=== PATIENT | female | born 1985 | race Caucasian/White ===

== ENCOUNTER → 2023-11-19 06:30 | Day surgery (SDC) | payer OTHER, SELFPAY ==
[2023-11-19 07:25] LABS: Glucose - Point of Care 115 mg/dl (70-99)
== END ==
LOC: GI 06:30
PROVIDERS: ATTENDING PHYSICIAN Internal Medicine Gastroenterology
DX: K62.5 Hemorrhage of anus and rectum (principal); R19.4 Change in bowel habit; K64.8 Other hemorrhoids; D12.4 Benign neoplasm of descending colon
CPT/HCPCS: 45380; 88305; 82962

== ENCOUNTER 2024-04-26 20:06 | Day surgery (SDC) | payer OTHER, SELFPAY ==
[2024-04-26 10:37] VITALS: BP 127/88
--- NOTE | 2024-04-26 10:44 | ED.GENMED ---
ED Provider Triage
<Jordana Reese PA-C - Last Filed: 04/26/24 10:48>
-
Patient seen by provider in Triage?: Seen in Triage
Attestation: A medical screening examination has been initiated by a qualified medical provider. Based on the assessment performed at this time, it has been determined that an emergent medical condition may exist and the patient has been informed
that further medical evaluation and possible additional diagnostic testing may be needed.
HPI: 38yoF here with chest pain. Started with nausea and subsequently had several episodes of vomiting. C/o central pain that radiates to the back. Worse with movement. Denies shortness of breath and pleuritic pain. Previously saw a registered land surveyor 6
years ago for an extra heart beat.
GENERAL: Alert , in no apparent distress
EYE: No visual abnormalities.
NECK: Trachea midline
ENT: No visible abnormalities.
LUNGS: No acute respiratory distress
NEUROLOGICAL: Alert and oriented
SKIN: Skin intact. No visible changes.
MUSCULOSKELETAL: Moving extremities normally
PSYCH: Normal and appropriate interaction.
This is a medical evaluation conducted in person to initiate diagnostic evaluation and provide initial therapeutics. Please see further documentation by the treating clinician.
Cardiac labs, EKG, and CXR ordered.
History of Present Illness
<Jordana Reese PA-C - Last Filed: 04/26/24 10:48>
General
Chief Complaint: Chest Pain
Time Seen by Provider: 04/26/24 12:15
<Ethel Keane PA-C - Last Filed: 04/26/24 20:15>
General
Source: patient
Exam Limitations: none
Nursing documentation reviewed up to this point in time: agreed with
History of Present Illness
History of Present Illness:
Patient is a 38-year-old female with history hypertension, hyperlipidemia, diabetes presenting to the emergency department for evaluation of vomiting and chest discomfort. Patient states this morning when she got to work she started to have some
nausea and vomiting. She then developed some intermittent mid chest pain. Chest pain was initially coming and going although seems to more constant at this time. She denies any clear pleuritic or exertional component to pain. She does state
chest pain is worse when she is sitting and actually better while walking around. Patient reports recurrent nausea/vomiting this morning. However�she does deny any fever, chills, abdominal pain, diarrhea/constipation, or urinary symptoms. No
associated shortness of breath, dizziness/lightheadedness, severe back pain. No radiation of chest pain to jaw or shoulder.
No known sick contacts.
Patient does have a fairly significant family history of early NH/cardiac disease in both her brother and father. Patient does not have any personal history of cardiac disease.
Patient does have a history of a gastric sleeve in 2010.
Past History
<Jordana Reese PA-C - Last Filed: 04/26/24 10:48>
Past History
ED Past Medical History: HTN, Hypercholesterolemia and IDDM
ED Past Surgical History: Other (Gastric sleeve)
Social History
Tobacco: Smoker
Alcohol: Former
Personal: Single
Living: alone
Family History
Family History: Diabetes and Other (Colon cancer, coronary artery disease)
Review of Systems
<Ethel Keane PA-C - Last Filed: 04/26/24 20:15>
Review of Systems
Allergies reviewed?: Yes
All Other Systems: ROS reviewed and negative except as documented in HPI and ROS
Phy Exam
<Ethel Keane PA-C - Last Filed: 04/26/24 20:15>
Physical Exam
Physical Exam:
Vitals: Patient's vital signs are stable. Afebrile
General: Patient is well appearing, no acute distress. Nontoxic appearing
Skin: Warm and dry, no rashes or lesions
Head: Normocephalic, atraumatic
Eyes: Sclera nonicteric. EOMs intact. No nystagmus.
Throat: Protecting airway
Neck: Normal ROM, no cervical spine tenderness, no meningismus
Cardiac: Regular rate and rhythm, no murmurs. No reproducible chest wall tenderness. No rash
Pulm: Normal respiratory effort, no wheezes, rales, rhonchi heard on exam.
Abdomen: Abdomen soft. Mild upper abdominal tenderness. No rebound tenderness or guarding. no CVA tenderness
Extremities: No evidence of cyanosis or edema. Palpable DP pulses bilaterally.
Neuro: AAOx3. Grossly intact.
Psychiatric: Normal affect.
Scores
<Ethel Keane PA-C - Last Filed: 04/26/24 20:15>
Heart Score for Chest Pain Patients
STEMI patient?: No
History: Slightly or Non-Suspicious
ECG: Normal
Age: </= 45 years
Risk Factors: >/= 3 Risk Factors or History of CAD
Troponin: </= Normal Limit
Heart Score for Chest Pain Patients: 2
Heart Score Risk: 2.5% MACE over next 6 weeks
<Moe Neely MD - Last Filed: 04/27/24 08:33>
Heart Score for Chest Pain Patients
Heart Score for Chest Pain Patients: 2
Heart Score Risk: 2.5% MACE over next 6 weeks
Course
<Jordana Reese PA-C - Last Filed: 04/26/24 10:48>
Orders/Labs/Results
Orders:
Orders
04/26/24 10:36
EKG [Electrocardiogram (*1)] Urgent
Reason for Study: Chest Pain
EKG- Treatment ONCE
04/26/24 10:40
Test Result ONCE
04/26/24 11:01
Complete Blood Count/With Diff Urgent
Comprehensive Metabolic Panel Urgent
HCG, Serum Qualitative Screen Urgent
Comment: Notify provider if positive test present
Lipase Urgent
Comment: ADD ON
Troponin I Urgent
04/26/24 11:57
CR Chest - 2 Views Urgent
Comment:
Reason For Exam: CP
04/26/24 12:31
0.9% Sodium Chloride 1000 ml [Nss] 1,000 ml IV BOLUS
Ketorolac [Toradol] 15 mg IV NOW STA
Ondansetron Injectable [Zofran] 4 mg IV NOW STA
04/26/24 12:32
Add On- LAB Urgent
Tests Added?: lipase
04/26/24 12:45
Pantoprazole [Protonix IV] 40 mg IV NOW STA
04/26/24 12:56
Troponin I Urgent
04/26/24 13:51
Ondansetron Injectable [Zofran] 4 mg IV NOW STA
04/26/24 14:05
Electrocardiogram (*1) Urgent
Reason for Study: Chest Pain
EKG- Treatment ONCE
04/26/24 14:23
Morphine Sulfate 4 mg IV NOW STA
04/26/24 14:34
US Abdomen Complete/Upper Urgent
Comment:
Reason For Exam: Upper abdominal pain, +V
04/26/24 14:35
Troponin I Urgent
04/26/24 Dinner
NPO
Allow oral meds: Yes
Allow clear liquids: Sips of Clears
04/26/24 16:15
Prochlorperazine [Compazine] 10 mg IV NOW STA
04/26/24 16:27
0.9% Sodium Chloride 1000 ml [Nss] 1,000 ml IV BOLUS
04/26/24 17:07
Morphine Sulfate 4 mg IV NOW STA
Piperacillin/Tazo 3.375 Gram [Zosyn] 3.375 gram in 50 ml IV NOW
04/26/24 17:13
Admit Patient As Directed
Co-Sign Provider:
Level of Care: Post Proc/Surg Recovery
Assign to:: Medical/Surgical
Physician / Group: Jose / GABRIEL
Diagnosis: Acute cholecystitis
Reason for Overnight Stay: Standard of Care
Code Status As Directed
Resuscitation Status: Full Code
HYDROmorphone [Dilaudid] 0.5 mg IV Q2HPRN PRN
Ondansetron Injectable [Zofran] 4 mg IV Q6HPRN PRN
Activity As Directed
Activity Level: Ambulate
Anti-embolism (HENRY) Hose As Directed
Type: Thigh high
Intake/ Output As Directed
Frequency: Per unit guidelines
Vital Signs As Directed
Frequency: Per unit guidelines
04/26/24 17:14
Pneumatic Compression Sleeves As Directed
Type: Knee high
PRN Pain Medication Management As Directed
May give lesser potent ordered pain med per pt: Yes
preference::
Protocol:: Medication orders for pain may be administered in a
manner that supports deferring to patient preference
when the pt is:
- Requesting an ordered lesser potent pain medication.
Least to most potent pain medications are defined
as: acetaminophen < NSAID < tramadol < opioids
(morphine, oxycodone, hydromorphone).
- Requesting a lesser dose of the same medication IF
ORDERED.
- Requesting a less intrusive route of administration
if both routes are prescribed by the provider (PO <
IV).
O2 Therapy [RESP] Routine
Titrate/Wean O2 to maintain O2 sat greater than (%): 90
Rx Incentive Spirometry [RESP] Routine
Frequency: q1h while awake
# of times per hour: 10
DX Deep Vein Thrombosis Video Routine
04/26/24 17:15
Normosol (Mult Electrolytes) [Normosol-R/Plasmalyte-A] 1,000 ml IV 100 mls/hr
04/26/24 17:16
Dextrose 50%-Water [Dextrose 50% Syringe] 12.5 grams IV [id number] PRN
Glucagon [GlucaGen] 1 mg IM PRN PRN
Bedside Glucose Monitoring As Directed
Frequency: AC&HS
Additional Instructions:: Change to q6h if pt on TPN, tube feeding or not eating
04/26/24 18:00
Enoxaparin Sodium [Lovenox] 40 mg SC QPM
04/26/24 20:00
Acetaminophen [Tylenol] 650 mg PO Q4HWA
04/27/24 07:30
Insulin Aspart Corrective Low [Novolog Flexpen-Low Resistance] See Protocol SC AC
04/27/24 07:37
Complete Blood Count/No Diff IN AM
Comprehensive Metabolic Panel IN AM
Glycohemoglobin (HgbA1c) IN AM
04/27/24 08:00
0.9% Sodium Chloride [Nss (Preservative Free)] 10 ml IV DAILY
Pantoprazole [Protonix IV] 40 mg IV DAILY
Abnormal Lab Results
04/26/24 04/27/24 04/27/24
11:01 00:14 07:37
RBC 3.76 L 10^6/uL
(4.20-5.40)
Hct 34.4 L %
(37.0-47.0)
MCH 32.5 H pg 32.7 H pg
(27.0-31.0) (27.0-31.0)
RDW 11.4 L % 11.3 L %
(11.5-14.5) (11.5-14.5)
Absolute Lymphs (auto) 1.1 L 10^3/uL
(1.2-3.4)
Neutrophils % 79.8 H %
(42.2-75.2)
Lymphocytes % 14.7 L %
(20.5-51.1)
BUN 3 L mg/dl 6 L mg/dl
(7-17) (7-17)
Glucose 142 H mg/dl
(70-99)
Total Protein 5.4 L D g/dl
(6.3-8.2)
Albumin 3.3 L g/dl
(3.5-5.0)
POC Glucose 106 H mg/dl
(70-99)
04/27/24 07:37
04/27/24 07:37
Vital Signs
Initial and Last Documented VS:
Initial Vital Signs
Temp Pulse Resp BP Pulse Ox
98.3 F 69 16 127/88 98
04/26/24 10:37 04/26/24 10:37 04/26/24 10:37 04/26/24 10:37 04/26/24 10:37
Last Documented Vital Signs
Temp Pulse Resp BP Pulse Ox
98.7 F 73 20 111/72 97
04/27/24 07:16 04/27/24 07:16 04/27/24 07:16 04/27/24 07:16 04/27/24 07:16
<Ethel Keane PA-C - Last Filed: 04/26/24 20:15>
Orders/Labs/Results
Orders:
Orders
04/26/24 10:36
EKG [Electrocardiogram (*1)] Urgent
Reason for Study: Chest Pain
EKG- Treatment ONCE
04/26/24 10:40
Test Result ONCE
04/26/24 11:01
Complete Blood Count/With Diff Urgent
Comprehensive Metabolic Panel Urgent
HCG, Serum Qualitative Screen Urgent
Comment: Notify provider if positive test present
Lipase Urgent
Comment: ADD ON
Troponin I Urgent
04/26/24 11:57
CR Chest - 2 Views Urgent
Comment:
Reason For Exam: CP
04/26/24 12:31
0.9% Sodium Chloride 1000 ml [Nss] 1,000 ml IV BOLUS
Ketorolac [Toradol] 15 mg IV NOW STA
Ondansetron Injectable [Zofran] 4 mg IV NOW STA
04/26/24 12:32
Add On- LAB Urgent
Tests Added?: lipase
04/26/24 12:45
Pantoprazole [Protonix IV] 40 mg IV NOW STA
04/26/24 12:56
Troponin I Urgent
04/26/24 13:51
Ondansetron Injectable [Zofran] 4 mg IV NOW STA
04/26/24 14:05
Electrocardiogram (*1) Urgent
Reason for Study: Chest Pain
EKG- Treatment ONCE
04/26/24 14:23
Morphine Sulfate 4 mg IV NOW STA
04/26/24 14:34
US Abdomen Complete/Upper Urgent
Comment:
Reason For Exam: Upper abdominal pain, +V
04/26/24 14:35
Troponin I Urgent
04/26/24 Dinner
NPO
Allow oral meds: Yes
Allow clear liquids: Sips of Clears
04/26/24 16:15
Prochlorperazine [Compazine] 10 mg IV NOW STA
04/26/24 16:27
0.9% Sodium Chloride 1000 ml [Nss] 1,000 ml IV BOLUS
04/26/24 17:07
Morphine Sulfate 4 mg IV NOW STA
Piperacillin/Tazo 3.375 Gram [Zosyn] 3.375 gram in 50 ml IV NOW
04/26/24 17:13
Admit Patient As Directed
Co-Sign Provider:
Level of Care: Post Proc/Surg Recovery
Assign to:: Medical/Surgical
Physician / Group: Jose / GABRIEL
Diagnosis: Acute cholecystitis
Reason for Overnight Stay: Standard of Care
Code Status As Directed
Resuscitation Status: Full Code
HYDROmorphone [Dilaudid] 0.5 mg IV Q2HPRN PRN
Ondansetron Injectable [Zofran] 4 mg IV Q6HPRN PRN
Activity As Directed
Activity Level: Ambulate
Anti-embolism (HENRY) Hose As Directed
Type: Thigh high
Intake/ Output As Directed
Frequency: Per unit guidelines
Vital Signs As Directed
Frequency: Per unit guidelines
04/26/24 17:14
Pneumatic Compression Sleeves As Directed
Type: Knee high
PRN Pain Medication Management As Directed
May give lesser potent ordered pain med per pt: Yes
preference::
Protocol:: Medication orders for pain may be administered in a
manner that supports deferring to patient preference
when the pt is:
- Requesting an ordered lesser potent pain medication.
Least to most potent pain medications are defined
as: acetaminophen < NSAID < tramadol < opioids
(morphine, oxycodone, hydromorphone).
- Requesting a lesser dose of the same medication IF
ORDERED.
- Requesting a less intrusive route of administration
if both routes are prescribed by the provider (PO <
IV).
O2 Therapy [RESP] Routine
Titrate/Wean O2 to maintain O2 sat greater than (%): 90
Rx Incentive Spirometry [RESP] Routine
Frequency: q1h while awake
# of times per hour: 10
DX Deep Vein Thrombosis Video Routine
04/26/24 17:15
Normosol (Mult Electrolytes) [Normosol-R/Plasmalyte-A] 1,000 ml IV 100 mls/hr
04/26/24 17:16
Dextrose 50%-Water [Dextrose 50% Syringe] 12.5 grams IV [id number] PRN
Glucagon [GlucaGen] 1 mg IM PRN PRN
Bedside Glucose Monitoring As Directed
Frequency: AC&HS
Additional Instructions:: Change to q6h if pt on TPN, tube feeding or not eating
04/26/24 18:00
Enoxaparin Sodium [Lovenox] 40 mg SC QPM
04/26/24 20:00
Acetaminophen [Tylenol] 650 mg PO Q4HWA
04/27/24 07:30
Insulin Aspart Corrective Low [Novolog Flexpen-Low Resistance] See Protocol SC AC
04/27/24 07:37
Complete Blood Count/No Diff IN AM
Comprehensive Metabolic Panel IN AM
Glycohemoglobin (HgbA1c) IN AM
04/27/24 08:00
0.9% Sodium Chloride [Nss (Preservative Free)] 10 ml IV DAILY
Pantoprazole [Protonix IV] 40 mg IV DAILY
Abnormal Lab Results
04/26/24 04/27/24 04/27/24
11:01 00:14 07:37
RBC 3.76 L 10^6/uL
(4.20-5.40)
Hct 34.4 L %
(37.0-47.0)
MCH 32.5 H pg 32.7 H pg
(27.0-31.0) (27.0-31.0)
RDW 11.4 L % 11.3 L %
(11.5-14.5) (11.5-14.5)
Absolute Lymphs (auto) 1.1 L 10^3/uL
(1.2-3.4)
Neutrophils % 79.8 H %
(42.2-75.2)
Lymphocytes % 14.7 L %
(20.5-51.1)
BUN 3 L mg/dl 6 L mg/dl
(7-17) (7-17)
Glucose 142 H mg/dl
(70-99)
Total Protein 5.4 L D g/dl
(6.3-8.2)
Albumin 3.3 L g/dl
(3.5-5.0)
POC Glucose 106 H mg/dl
(70-99)
04/27/24 07:37
04/27/24 07:37
Vital Signs
Initial and Last Documented VS:
Initial Vital Signs
Temp Pulse Resp BP Pulse Ox
98.3 F 69 16 127/88 98
04/26/24 10:37 04/26/24 10:37 04/26/24 10:37 04/26/24 10:37 04/26/24 10:37
Last Documented Vital Signs
Temp Pulse Resp BP Pulse Ox
98.7 F 73 20 111/72 97
04/27/24 07:16 04/27/24 07:16 04/27/24 07:16 04/27/24 07:16 04/27/24 07:16
<Moe Neely MD - Last Filed: 04/27/24 08:33>
Orders/Labs/Results
Orders:
Orders
04/26/24 10:36
EKG [Electrocardiogram (*1)] Urgent
Reason for Study: Chest Pain
EKG- Treatment ONCE
04/26/24 10:40
Test Result ONCE
04/26/24 11:01
Complete Blood Count/With Diff Urgent
Comprehensive Metabolic Panel Urgent
HCG, Serum Qualitative Screen Urgent
Comment: Notify provider if positive test present
Lipase Urgent
Comment: ADD ON
Troponin I Urgent
04/26/24 11:57
CR Chest - 2 Views Urgent
Comment:
Reason For Exam: CP
04/26/24 12:31
0.9% Sodium Chloride 1000 ml [Nss] 1,000 ml IV BOLUS
Ketorolac [Toradol] 15 mg IV NOW STA
Ondansetron Injectable [Zofran] 4 mg IV NOW STA
04/26/24 12:32
Add On- LAB Urgent
Tests Added?: lipase
04/26/24 12:45
Pantoprazole [Protonix IV] 40 mg IV NOW STA
04/26/24 12:56
Troponin I Urgent
04/26/24 13:51
Ondansetron Injectable [Zofran] 4 mg IV NOW STA
04/26/24 14:05
Electrocardiogram (*1) Urgent
Reason for Study: Chest Pain
EKG- Treatment ONCE
04/26/24 14:23
Morphine Sulfate 4 mg IV NOW STA
04/26/24 14:34
US Abdomen Complete/Upper Urgent
Comment:
Reason For Exam: Upper abdominal pain, +V
04/26/24 14:35
Troponin I Urgent
04/26/24 Dinner
NPO
Allow oral meds: Yes
Allow clear liquids: Sips of Clears
04/26/24 16:15
Prochlorperazine [Compazine] 10 mg IV NOW STA
04/26/24 16:27
0.9% Sodium Chloride 1000 ml [Nss] 1,000 ml IV BOLUS
04/26/24 17:07
Morphine Sulfate 4 mg IV NOW STA
Piperacillin/Tazo 3.375 Gram [Zosyn] 3.375 gram in 50 ml IV NOW
04/26/24 17:13
Admit Patient As Directed
Co-Sign Provider:
Level of Care: Post Proc/Surg Recovery
Assign to:: Medical/Surgical
Physician / Group: Jose / GABRIEL
Diagnosis: Acute cholecystitis
Reason for Overnight Stay: Standard of Care
Code Status As Directed
Resuscitation Status: Full Code
HYDROmorphone [Dilaudid] 0.5 mg IV Q2HPRN PRN
Ondansetron Injectable [Zofran] 4 mg IV Q6HPRN PRN
Activity As Directed
Activity Level: Ambulate
Anti-embolism (HENRY) Hose As Directed
Type: Thigh high
Intake/ Output As Directed
Frequency: Per unit guidelines
Vital Signs As Directed
Frequency: Per unit guidelines
04/26/24 17:14
Pneumatic Compression Sleeves As Directed
Type: Knee high
PRN Pain Medication Management As Directed
May give lesser potent ordered pain med per pt: Yes
preference::
Protocol:: Medication orders for pain may be administered in a
manner that supports deferring to patient preference
when the pt is:
- Requesting an ordered lesser potent pain medication.
Least to most potent pain medications are defined
as: acetaminophen < NSAID < tramadol < opioids
(morphine, oxycodone, hydromorphone).
- Requesting a lesser dose of the same medication IF
ORDERED.
- Requesting a less intrusive route of administration
if both routes are prescribed by the provider (PO <
IV).
O2 Therapy [RESP] Routine
Titrate/Wean O2 to maintain O2 sat greater than (%): 90
Rx Incentive Spirometry [RESP] Routine
Frequency: q1h while awake
# of times per hour: 10
DX Deep Vein Thrombosis Video Routine
04/26/24 17:15
Normosol (Mult Electrolytes) [Normosol-R/Plasmalyte-A] 1,000 ml IV 100 mls/hr
04/26/24 17:16
Dextrose 50%-Water [Dextrose 50% Syringe] 12.5 grams IV [id number] PRN
Glucagon [GlucaGen] 1 mg IM PRN PRN
Bedside Glucose Monitoring As Directed
Frequency: AC&HS
Additional Instructions:: Change to q6h if pt on TPN, tube feeding or not eating
04/26/24 18:00
Enoxaparin Sodium [Lovenox] 40 mg SC QPM
04/26/24 20:00
Acetaminophen [Tylenol] 650 mg PO Q4HWA
04/27/24 07:30
Insulin Aspart Corrective Low [Novolog Flexpen-Low Resistance] See Protocol SC AC
04/27/24 07:37
Complete Blood Count/No Diff IN AM
Comprehensive Metabolic Panel IN AM
Glycohemoglobin (HgbA1c) IN AM
04/27/24 08:00
0.9% Sodium Chloride [Nss (Preservative Free)] 10 ml IV DAILY
Pantoprazole [Protonix IV] 40 mg IV DAILY
Abnormal Lab Results
04/26/24 04/27/24 04/27/24
11:01 00:14 07:37
RBC 3.76 L 10^6/uL
(4.20-5.40)
Hct 34.4 L %
(37.0-47.0)
MCH 32.5 H pg 32.7 H pg
(27.0-31.0) (27.0-31.0)
RDW 11.4 L % 11.3 L %
(11.5-14.5) (11.5-14.5)
Absolute Lymphs (auto) 1.1 L 10^3/uL
(1.2-3.4)
Neutrophils % 79.8 H %
(42.2-75.2)
Lymphocytes % 14.7 L %
(20.5-51.1)
BUN 3 L mg/dl 6 L mg/dl
(7-17) (7-17)
Glucose 142 H mg/dl
(70-99)
Total Protein 5.4 L D g/dl
(6.3-8.2)
Albumin 3.3 L g/dl
(3.5-5.0)
POC Glucose 106 H mg/dl
(70-99)
04/27/24 07:37
04/27/24 07:37
Vital Signs
Initial and Last Documented VS:
Initial Vital Signs
Temp Pulse Resp BP Pulse Ox
98.3 F 69 16 127/88 98
04/26/24 10:37 04/26/24 10:37 04/26/24 10:37 04/26/24 10:37 04/26/24 10:37
Last Documented Vital Signs
Temp Pulse Resp BP Pulse Ox
98.7 F 73 20 111/72 97
04/27/24 07:16 04/27/24 07:16 04/27/24 07:16 04/27/24 07:16 04/27/24 07:16
<Ethel Keane PA-C - Last Filed: 04/26/24 20:15>
MDM/Problems Addressed
Differential Diagnosis Includes:
Not limited to: Viral gastroenteritis, GERD, biliary colic, acute cholecysitits, pericarditis, myocarditis, acute coronary syndrome, pneumonia, etc.
MDM/Problems Addressed:
38-year-old female presenting with what she describes as chest discomfort and intractable nausea/vomiting since this morning. No fevers, abdominal pain, or diarrhea. No urinary symptoms. Patient has stable vital signs on arrival, she is afebrile.
On exam�patient is actively retching and uncomfortable due to pain. Heart regular rate and rhythm. Lungs are clear bilaterally. Abdomen is soft with some mild upper abdominal tenderness although no rebound tenderness or guarding. No CVA
tenderness. Patient herself has no cardiac history other significant family history of NH at young ages. Labs initiated in triage without any clinically significant abnormalities. There is no leukocytosis. Initial troponin undetectable. Lipase
normal. test negative. Chest x-ray without acute abnormalities. Differential somewhat broad although symptoms less consistent with cardiac etiology, low suspicion for ACS. Given significant family history�will trend troponins. Other
considerations include viral gastroenteritis, biliary colic, GERD, etc. Will treat pain and nausea, give fluids and reassess
Update: Patient still with significant nausea and intractable pain after Toradol and Zofran. Troponin remains undetectable. At this point�very low suspicion for ACS. Will give dose of morphine. Given intractable pain will check abdominal
ultrasound to rule out possible biliary etiology.
Update: Abdominal ultrasound does show gallstones with a positive sonographic Cao sign. Concern for possible acute cholecystitis given ultrasound findings and patient is intractable pain/nausea. Patient will require admission to the hospital.
Did discuss case with general surgeon, Dr. Garcia who will admit to his service. Patient started on Zosyn in emergency department. Patient accepted to surgery service in stable condition.
Chronic conditions affecting care:
Hypertension, hyperlipidemia, diabetes
Acute Exacerbation and/or Progression of Chronic Illness:
Acute cholecystitis
<Ethel Keane PA-C - Last Filed: 04/26/24 20:15>
*Radiology
Radiology exam reviewed: radiology read reviewed
*Pulse Oximetry
Patient hypoxic: no
*EKG
Interpreted by ED Provider?: Yes
EKG Intrepretation Date: 04/26/24
Interpretation: normal
Comparison EKG: changes noted
Heart Rate: 63
Rhythm: sinus
Udell: normal axis
Interval: normal QT interval
QRS Pattern: normal QRS
Ischemia: non-specific ST changes (T wave flattening in lead III and V2)
*Felt Cutting Machine Operator Interpretation
Rate: normal
Interpretation: normal
Heart Rate: 64
Rhythm: sinus
*Critical Care Note
Total Time (30-74mins, 75-104mins- exclusive of procedures): Not Applicable
<Ethel Keane PA-C - Last Filed: 04/26/24 20:15>
Patient Management
Discussion with other providers: Dry Mop Maker (General surgery- Dr. Garcia)
Escalation/DeEscalation of care consider admission/obs:
Admit for pain control/cholecystectomy tomorrow with general surgery
ED Attending Note
<Jordana Reese PA-C - Last Filed: 04/26/24 10:48>
-
Portions of this chart may have been created with voice recognition software.� Occasional wrong word or��sound alike� substitutions may have occurred due to the inherent limitations of voice recognition software.
<Moe Neely MD - Last Filed: 04/27/24 08:33>
ED Attending Note
Patient seen and examined by attending physician: Yes
ED Attending Note:
Patient is status post gastric sleeve procedure over 10 years ago at [facility], presents to ED secondary to persistent substernal/upper abdominal pain with nausea sensation, shortly after waking up this morning. Patient reports having had
ice cream before going to sleep, but did not have any discomfort. Denies previous history of similar symptoms. Abdominal pain described as sharp, nonradiating, without any alleviating or exacerbating factors. Denies trauma. Denies fever or
chills. Denies recent change in medications or diet.
Physical Exam
General: mild painful distress, not acutely ill. afebrile
Head: nc/at. eomi
Neck: supple. normal range of motion.
Heart: s1/s2 regular rate and rhythm, no murmur. equal radial pulses.
Lungs: no acute respiratory distress. clear bilaterally
Abdomen: normal bowel sounds. mild epigastric/RUQ tenderness to palpation.
Neuro: alert and oriented x 3. no focal neurological deficits
Skin: no rash
Psychiatric: well kept. interactive and cooperative
Extremities: no edema. no calf tenderness.
History and exam concerning for biliary disease versus gastritis versus ulcer versus less likely ACS. Patient otherwise remains afebrile and hemodynamically stable. Patient will be treated symptomatically and abdominal ultrasound will be ordered.
Discharge Plan
Departure
Patient Disposition: Admit
Date of Disposition: 04/26/24
Time of Disposition: 17:06
Presentation/result/management discussed w/ accepting MD/DO: Dr. Garcia
Discharge Problem:
Acute cholecystitis
Interventions
Interventions:
*Risk Screen - Suicide Last Done: 04/26/24 10:37
*General Assessment Last Done: 04/26/24 10:37
*Neglect/Abuse Screening Last Done: 04/26/24 10:37
ED- Fall Risk Assessment Last Done: 04/26/24 21:53
*ED COVID-19 Vaccine History Last Done: 04/26/24 21:53
*Nursing Disposition Last Done: 04/26/24 21:53
ED- Cardiac Assessment Last Done: 04/26/24 12:32
Discharge Date and Time
Discharge Date/Time: 04/26/24 21:53
[2024-04-26 11:27] LABS: % Basophils 0.4 % (0-2); % Eosinophils 0.9 % (0-6); % Immature Granulocytes 0.3 % (0-0.5); % Lymphocytes 14.7 % (20.5-51.1); % Monocytes 3.9 % (1.7-9.3); % Neutrophils 79.8 % (42.2-75.2); Absolute Eosinophils 0.1 10^3/uL (0-0.7); Absolute Lymphocytes 1.1 10^3/uL (1.2-3.4); Absolute Monocytes 0.3 10^3/uL (0.1-0.6); Absolute Neutrophils 5.9 10^3/uL (1.4-6.5); Hematocrit 38.8 % (37.0-47.0); Hemoglobin 13.9 g/dL (12.0-16.0); Mean Corp Hgb Conc. 35.8 g/dL (33.0-37.0); Mean Corpuscular Hgb 32.5 pg (27.0-31.0); Mean Corpuscular Volume 90.7 fL (81.0-99.0); Mean Platelet Volume 9.8 fL (7.4-10.4); Nucleated Red Blood Cells % 0 %; Platelet Count 220 10^3/uL (130-400); Red Blood Cell Count 4.28 10^6/uL (4.20-5.40); Red Cell Dist. Width 11.4 % (11.5-14.5); White Blood Cell Count 7.4 10^3/uL (4.8-10.8)
[2024-04-26 11:35] LABS: HCG, Serum Qualitative Screen Negative
[2024-04-26 11:36] LABS: ALT (SGPT) 21 U/L (0-35); AST (SGOT) 19 U/L (14-36); Albumin 4.3 g/dl (3.5-5.0); Alkaline Phosphatase 69 U/L (38-126); Blood Urea Nitrogen 3 mg/dl (7-17); Calcium 9.3 mg/dl (8.4-10.2); Carbon Dioxide 30 mmol/L (22-30); Chloride 101 mmol/L (98-107); Glucose 142 mg/dl (70-99); Potassium 4.1 mmol/L (3.5-5.1); Sodium 137 mmol/L (135-145); Total Bilirubin 0.6 mg/dl (0.2-1.3); Total Protein 6.8 g/dl (6.3-8.2); eGFR > 60.00
[2024-04-26 11:46] LABS: Troponin I < 0.012 ng/ml
[2024-04-26] MEDS: TORADOL 15 MG IV (12:47)
[2024-04-26] MEDS: PROTONIX IV 40 MG IV (12:47)
[2024-04-26] MEDS: ZOFRAN 4 MG IV ×2 (12:48→14:12)
[2024-04-26] MEDS: NSS 1000 IV ×2 (12:48→17:31)
[2024-04-26 13:07] LABS: Lipase 172 U/L (23-300)
[2024-04-26 13:39] LABS: Troponin I < 0.012 ng/ml
[2024-04-26] MEDS: MORPHINE SULFATE 4 MG IV ×2 (14:29→17:32)
[2024-04-26 15:11] LABS: Troponin I < 0.012 ng/ml
--- NOTE | 2024-04-26 17:05 | HPS.HSE ---
Family Physician
-
Family Physician: Christy Huff PA-C
Chief Complaint
-
Abdominal pain
History of Present Illness
Patient is a 38 yo F with a PMH of obesity s/p laparoscopic sleeve gastrectomy at [facility], NIDDM, active tobacco use, s/p x 2 who presents to the ER with 12 hours of epigastric abdominal pain. Ms. Mcgovern states that her
symptoms began acutely this morning after eating donuts. She describes severe epigastric and RUQ abdominal pain. Symptoms were initially more mild and intermittent but have become more constant and severe throughout the course of the day prompting
presentation to the ED. Associated nausea and vomiting. Subjective chills. She denies any fluctuations from a GI standpoint. She denies any jaundice, pale stools, or tea colored urine. She denies any issues with dysphagia or reflux. She denies
any prior attacks of similar abdominal pain or discomfort. Of note, she has lost over 100 pounds since her sleeve gastrectomy.
Medical History
Past Medical History
Past Medical History: Reports NIDDM and Other (Obesity)
Past Surgical History: Reports and Other ( Laparoscopic sleeve gastrectomy)
Social History
Tobacco: Smoker (8 cigarettes a day)
Alcohol: None
Drug: None
Family History
Family History: Not pertinent
Allergies / Home Medications
Allergies reflects when Allergies were last updated in [employer].
Home Medications with original date entered in [employer]
Allergy/Medication List:
NKDA
Review of Systems
-
A 12 point ROS was completed and negative except as noted: Yes
Physical Exam
Vital Signs
Vital Signs
Temp Pulse Resp BP Pulse Ox
98.3 F 62 13 127/88 98
04/26/24 10:37 04/26/24 12:31 04/26/24 12:31 04/26/24 10:37 04/26/24 10:37
Physical Exam
General: Well Developed, Well Nourished and No Apparent Distress
HEENT: NormoCephalic and Anicteric
Respiratory: Non Labored Respirations
Cardiac: Regular Rhythm
GI: Soft, Non Distended, Tender (Epigastrium/RUQ, positive Cao sign) and Other ( Nonperitoneal (no rebound or guarding))
Musculoskeletal: No Edema
Skin: Warm and Dry
Neuro: Nonfocal/grossly intact
Laboratory Results
-
04/26/24 11:01
04/26/24 11:01
Laboratory Results
Total Bilirubin 0.6 mg/dl (0.2-1.3) 04/26/24 11:01
AST 19 U/L (14-36) 04/26/24 11:01
ALT 21 U/L (0-35) 04/26/24 11:01
Alkaline Phosphatase 69 U/L (38-126) 04/26/24 11:01
Troponin I < 0.012 ng/ml 04/26/24 14:35
Lipase 172 U/L (23-300) 04/26/24 11:01
Data Reviewed
-
Ultrasound: Image Personally Visualized and interpreted and Report Reviewed by me
Lab Data: Labs Reviewed by me
Impression/Plan
-
IMPRESSION:
Patient is a 38 yo F p/w likely acute cholecystitis
The natural history and pathophysiology of biliary and stone disease was briefly reviewed. Options for management were reviewed. Given her persistent discomfort recommend admission with pain control, IV antibiotics, and repeat labs. Patient be
evaluated by the general surgery service tomorrow to confirm plans for laparoscopic/robotic cholecystectomy. All questions answered.
PLAN:
-- Admit
-- NPO, IVF
-- Pain control: Tylenol, IV Dilaudid PRN
-- Abx: Zosyn
-- DVT: Lovenox
-- GI PPI
-- Repeat labs in AM
[2024-04-26] MEDS: COMPAZINE 10 MG IV (17:31)
[2024-04-26] MEDS: ZOSYN 50 IV (17:33)
[2024-04-26 17:42] VITALS: BP 127/90
[2024-04-26] MEDS: TYLENOL PO (21:16)
[2024-04-26 21:47] VITALS: BP 94/64; BMI 27.1
[2024-04-26] MEDS: NORMOSOL-R/PLASMALYTE-A 1000 IV (21:59)
[2024-04-26] MEDS: LOVENOX 40 MG SC (22:07)
[2024-04-26 23:00] VITALS: BP 97/63
[2024-04-26] MEDS: TYLENOL 650 MG PO (23:08)
[2024-04-27] VITALS (9 sets, daily range): BP systolic 111–125; BP diastolic 72–85
[2024-04-27 00:15] LABS: Glucose - Point of Care 106 mg/dl (70-99)
--- NOTE | 2024-04-27 00:55 | PTCARENOTE ---
Pt received on unit approximately 2200. Pt AAOx3, VSS, pt NPO. Pt able to walk from stretcher to bed. Pt c/o of mild epigastric pain. Pt oriented to room and able to make needs known, call queen within reach.
[2024-04-27] MEDS: TYLENOL 650 MG PO ×3 (04:18→15:29)
[2024-04-27 05:49] LABS: Glucose - Point of Care 88 mg/dl (70-99)
[2024-04-27] MEDS: PROTONIX IV 40 MG IV (07:53)
[2024-04-27] MEDS: NSS (PRESERVATIVE FREE) 10 ML IV (07:53)
[2024-04-27 08:02] LABS: Hematocrit 34.4 % (37.0-47.0); Hemoglobin 12.3 g/dL (12.0-16.0); Mean Corp Hgb Conc. 35.8 g/dL (33.0-37.0); Mean Corpuscular Hgb 32.7 pg (27.0-31.0); Mean Corpuscular Volume 91.5 fL (81.0-99.0); Platelet Count 199 10^3/uL (130-400); Red Blood Cell Count 3.76 10^6/uL (4.20-5.40); Red Cell Dist. Width 11.3 % (11.5-14.5); White Blood Cell Count 8.9 10^3/uL (4.8-10.8)
[2024-04-27 08:29] LABS: ALT (SGPT) 16 U/L (0-35); AST (SGOT) 16 U/L (14-36); Albumin 3.3 g/dl (3.5-5.0); Alkaline Phosphatase 57 U/L (38-126); Blood Urea Nitrogen 6 mg/dl (7-17); Calcium 8.5 mg/dl (8.4-10.2); Carbon Dioxide 29 mmol/L (22-30); Chloride 106 mmol/L (98-107); Estimated Creatinine Clearance 107 ml/min; Glucose 88 mg/dl (70-99); Potassium 3.7 mmol/L (3.5-5.1); Sodium 140 mmol/L (135-145); Total Bilirubin 0.8 mg/dl (0.2-1.3); Total Protein 5.4 g/dl (6.3-8.2); eGFR > 60.00
[2024-04-27] MEDS: NORMOSOL-R/PLASMALYTE-A 1000 IV (08:32)
--- NOTE | 2024-04-27 09:27 | W.PN.UPDATE ---
Update Note
Progress Note Update
Pt seen and evaluated at bedside.
Much improved today but RUQ pain remains. mild ttp to RUQ on exam.
Risks, benefits, complications and alternatives were discussed at length including but not limited to pain, bleeding, scarring, retained stone, injury to intra-abdominal structures, conversion to open, need for further procedures, infection and pt
verbalized understanding and agreed to proceed.
OCTOR for lap dylan
[2024-04-27 09:36] LABS: Glycohemoglobin (HgbA1c) 5.4 % (4.0-5.6)
[2024-04-27 11:50] LABS: Glucose - Point of Care 102 mg/dl (70-99)
[2024-04-27] MEDS: TYLENOL PO (12:13)
--- NOTE | 2024-04-27 13:48 | OR.RPT ---
Operative Report
Operative Report
Primary Surgeon: Julius
Assisting: Maye GRIFFIN
Pre-op Diagnosis: Biliary colic
Post-op Diagnosis: Chronic cholecystitis
Procedure Performed: Robot assisted laparoscopic cholecystectomy
Anesthesia Type: GETA
Specimen / Cultures: Gallbladder
Estimated Blood Loss: 10cc
Complications: None immediate
Operative Findings: Softly distended gallbladder with thickened fibrotic wall and fibrotic posterior plane
Date of Surgery:� 04/27/24
Indications: This 38F developed biliary colic. Laparoscopic cholecystectomy with robotic assist was elected.
Description of procedure: The patient was placed on the operating table in the supine position. General anesthesia was induced. A time-out was completed verifying correct patient, procedure, site, positioning, and special equipment prior to
beginning this procedure. The abdomen was prepped and draped in the usual sterile fashion. A stab incision was made in left upper quadrant and the Veress needle was inserted. Proper position was confirmed by aspiration and saline meniscus test. The
abdomen was insufflated with carbon dioxide to a pressure of 12mmHg. The patient tolerated insufflation well.
A 8mm trocar was then inserted above the umbilicus. The laparoscope was inserted and the abdomen inspected. No injuries from initial trocar placement or Veress needle insertion were noted. Additional 8mm trocars were then inserted in the following
locations: two in the right lower quadrant and to the left of the umbilicus and just above. The abdomen was inspected and no abnormalities were found. The table was placed in the reverse Trendelenburg position with the right side up. The dome of the
gallbladder was grasped with an atraumatic grasper and retracted over the dome of the liver. Dense omental adhesions were carefully teased down with gently blunt sweeps and judicious hook cautery. The infundibulum was then grasped with an atraumatic
grasper and retracted toward the right lower quadrant. This maneuver exposed Calot�s triangle. The peritoneum overlying the gallbladder infundibulum was then incised and the cystic duct and cystic artery identified and circumferentially dissected so
that a clear view of the liver was achieved through a window between the cystic duct an cystic artery. At this time, the only two structures going into the gallbladder were the cystic artery and cystic duct. The common duct was visualized with ICG
and protected.
The cystic duct was then doubly clipped and divided. The cystic artery was controlled with bipolar and divided. The gallbladder was then dissected from its peritoneal attachments by electrocautery. The posterior plane was fibrotic and the wall was
thickened. The gallbladder was removed using an endoscopic retrieval bag placed through the umbilical port. The gallbladder was passed off the table as a specimen. The gallbladder fossa was observed closely for several minutes. There was no evidence
of bleeding from the gallbladder fossa or cystic artery or leakage of the bile from the cystic duct stump. The umbilical trocar site was closed at the fascial level with 2-0 PDS. Secondary trocars were removed under direct vision and noted to be
hemostatic. The abdomen was allowed to collapse. The skin was closed with subcuticular sutures of 4-0 monocryl and topical skin adhesive. The orogastric tube was removed.
The patient tolerated the procedure well and was taken to the postanesthesia care unit in stable condition.
[2024-04-27 14:27] LABS: Glucose - Point of Care 124 mg/dl (70-99)
[2024-04-27] MEDS: NORMOSOL-R/PLASMALYTE-A IV (14:47)
[2024-04-27] MEDS: ROXICODONE 5 MG PO (15:31)
[2024-04-27 15:46] LABS: Glucose - Point of Care 115 mg/dl (70-99)
--- NOTE | 2024-04-27 16:19 | CM ---
utilities manager reviewed patients chart and met with patient and patient lives with multiple family members in a 2 story home, patient is independent with adl's and ambulation, patient does not use any dme, patient drives, home when stable no needs.
PCP: Christy uHff
Pharmacy; [facility] in [place]
Plan; Home no needs.
[2024-04-27] MEDS: LOVENOX 40 MG SC (17:06)
--- NOTE | 2024-04-27 18:13 | PTCARENOTE ---
Pt for discharge, awaiting ride home from mother. Small skin tear noted above lap site on RLQ with scant sanguinous drainage. Pat dry with gauze, steri-strip applied. Discharge instructions reiterated.
== END 2024-04-27 20:30 | disposition home or self-care (01) ==
LOC: SDS 20:06
PROVIDERS: Emergency Medicine; Physician Assistant; ATTENDING PHYSICIAN Surgery; EMERGENCY PHYSICIAN Emergency Medicine; FAMILY PHYSICIAN Physician Assistant Medical
DX: K80.66 Calculus of gallbladder and bile duct with acute and chronic cholecystitis without obstruction (principal)
CPT/HCPCS: 47562; 88304; 71046; 76700; 80053; 82962; 83036; 83690; 84484; 84703; 85025; 85027; 93005; 96374; 96375; 99285

== ENCOUNTER 2024-04-29 00:33 | Observation (INO) | payer OTHER, SELFPAY ==
[2024-04-28 17:01] VITALS: BMI 29.6
[2024-04-28 17:20] VITALS: BP 145/90
--- NOTE | 2024-04-28 17:24 | ED.GENMED ---
ED Provider Triage
<JUSTIN Bazzi - Last Filed: 04/28/24 17:28>
-
Patient seen by provider in Triage?: Seen in Triage
Attestation: A medical screening examination has been initiated by a qualified medical provider. Based on the assessment performed at this time, it has been determined that an emergent medical condition may exist and the patient has been informed
that further medical evaluation and possible additional diagnostic testing may be needed.
HPI:
38 yr old female s/p cholecystectomy yesterday by DR Madrid. Started with n/v after eating this am. Pt has vomited about 6 times, + 1 episode of diarrhea.
No fever.
She reports Zofran does not work for her , however Compazine does .
GENERAL: Alert , in no apparent distress
EYE: No visual abnormalities.
NECK: Trachea midline
ENT: No visible abnormalities.
LUNGS: No acute respiratory distress
NEUROLOGICAL: Alert and oriented
SKIN: Skin intact. No visible changes.
MUSCULOSKELETAL: Moving extremities normally
PSYCH: Normal and appropriate interaction.
This is a medical evaluation conducted in person to initiate diagnostic evaluation and provide initial therapeutics. Please see further documentation by the treating clinician.
History of Present Illness
<JUSTIN Bazzi - Last Filed: 04/28/24 17:28>
General
Chief Complaint: Post Operative Problem(s)
Time Seen by Provider: 04/28/24 21:19
<Collin Walton PA-C - Last Filed: 04/28/24 23:36>
History of Present Illness
History of Present Illness:
38-year-old female presents to the emergency department for evaluation of intractable swelling. She is 1 day status post laparoscopic cholecystectomy performed in this hospital for acute cholecystitis. Reports mild to moderate abdominal pain at
this time. Of note she is on Mounjaro and her last dose was the day before presentation to the ER. No diarrhea at this point. No fever
Past History
<JUSTIN Bazzi - Last Filed: 04/28/24 17:28>
Past History
ED Past Medical History: HTN, Hypercholesterolemia and IDDM
ED Past Surgical History: Other (Gastric sleeve)
Social History
Tobacco: Smoker
Alcohol: Former
Personal: Single
Living: alone
Family History
Family History: Diabetes and Other (Colon cancer, coronary artery disease)
Review of Systems
<Collin Walton PA-C - Last Filed: 04/28/24 23:36>
Review of Systems
Allergies reviewed?: Yes
All Other Systems: ROS reviewed and negative except as documented in HPI and ROS
Phy Exam
<Collin Walton PA-C - Last Filed: 04/28/24 23:36>
Physical Exam
Physical Exam:
GEN: Well appearing, NAD, WDWN
HEENT: Oral mucosa moist, no scleral icterus
Cardiac: Regular rate
Lung: No respiratory distress, no tachypnea
Abdomen: Laparoscopic incisional sites are dry and intact, the right inferior incisional site has surrounding ecchymosis and a palpable nonpulsatile hematoma, abdomen is grossly nontender otherwise
MSK: No gross deformity or injuries
Skin: Good color, no pallor or jaundice, no rashes
Neuro: AO x3, moves all extremities freely
Psych: Calm, cooperative
Course
<JUSTIN Bazzi - Last Filed: 04/28/24 17:28>
Orders/Labs/Results
Orders:
Orders
04/28/24 17:27
Prochlorperazine [Compazine] 10 mg PO NOW STA
04/28/24 17:40
Complete Blood Count/With Diff Urgent
Comprehensive Metabolic Panel Urgent
04/28/24 19:46
Ondansetron Orally Disint [Zofran Odt (Orally Disintegrating)] 4 mg .ROUTE .[facility]-MED ONE
04/28/24 19:50
Ondansetron Orally Disint [Zofran Odt (Orally Disintegrating)] 4 mg PO NOW STA
04/28/24 21:43
0.9% Sodium Chloride 1000 ml [Nss] 1,000 ml IV BOLUS
HYDROmorphone [Dilaudid] 0.5 mg IV NOW STA
Metoclopramide [Reglan] 10 mg IV NOW STA
Abnormal Lab Results
04/28/24
17:40
RBC 3.92 L 10^6/uL
(4.20-5.40)
Hct 36.0 L %
(37.0-47.0)
MCH 33.4 H pg
(27.0-31.0)
Absolute Neuts (auto) 7.0 H 10^3/uL
(1.4-6.5)
Absolute Monos (auto) 0.8 H 10^3/uL
(0.1-0.6)
Lymphocytes % 18.6 L %
(20.5-51.1)
BUN 3 L mg/dl
(7-17)
Glucose 132 H mg/dl
(70-99)
ALT 37 H U/L
(0-35)
04/28/24 17:40
04/28/24 17:40
Vital Signs
Initial and Last Documented VS:
Initial Vital Signs
Temp Pulse Resp BP Pulse Ox
98.7 F 67 16 145/90 100
04/28/24 17:20 04/28/24 17:20 04/28/24 17:20 04/28/24 17:20 04/28/24 17:20
Last Documented Vital Signs
Temp Pulse Resp BP Pulse Ox
98.7 F 86 21 153/88 95
04/28/24 17:20 04/28/24 22:30 04/28/24 22:30 04/28/24 22:05 04/28/24 22:15
<Collin Walton PA-C - Last Filed: 04/28/24 23:36>
Orders/Labs/Results
Orders:
Orders
04/28/24 17:27
Prochlorperazine [Compazine] 10 mg PO NOW STA
04/28/24 17:40
Complete Blood Count/With Diff Urgent
Comprehensive Metabolic Panel Urgent
04/28/24 19:46
Ondansetron Orally Disint [Zofran Odt (Orally Disintegrating)] 4 mg .ROUTE .[facility]-MED ONE
04/28/24 19:50
Ondansetron Orally Disint [Zofran Odt (Orally Disintegrating)] 4 mg PO NOW STA
04/28/24 21:43
0.9% Sodium Chloride 1000 ml [Nss] 1,000 ml IV BOLUS
HYDROmorphone [Dilaudid] 0.5 mg IV NOW STA
Metoclopramide [Reglan] 10 mg IV NOW STA
Abnormal Lab Results
04/28/24
17:40
RBC 3.92 L 10^6/uL
(4.20-5.40)
Hct 36.0 L %
(37.0-47.0)
MCH 33.4 H pg
(27.0-31.0)
Absolute Neuts (auto) 7.0 H 10^3/uL
(1.4-6.5)
Absolute Monos (auto) 0.8 H 10^3/uL
(0.1-0.6)
Lymphocytes % 18.6 L %
(20.5-51.1)
BUN 3 L mg/dl
(7-17)
Glucose 132 H mg/dl
(70-99)
ALT 37 H U/L
(0-35)
04/28/24 17:40
04/28/24 17:40
Vital Signs
Initial and Last Documented VS:
Initial Vital Signs
Temp Pulse Resp BP Pulse Ox
98.7 F 67 16 145/90 100
04/28/24 17:20 04/28/24 17:20 04/28/24 17:20 04/28/24 17:20 04/28/24 17:20
Last Documented Vital Signs
Temp Pulse Resp BP Pulse Ox
98.7 F 86 21 153/88 95
04/28/24 17:20 04/28/24 22:30 04/28/24 22:30 04/28/24 22:05 04/28/24 22:15
<Collin Walton PA-C - Last Filed: 04/28/24 23:36>
*Critical Care Note
Total Time (30-74mins, 75-104mins- exclusive of procedures): Not Applicable
ED Attending Note
<JUSTIN Bazzi - Last Filed: 04/28/24 17:28>
-
Portions of this chart may have been created with voice recognition software.� Occasional wrong word or��sound alike� substitutions may have occurred due to the inherent limitations of voice recognition software.
Discharge Plan
Departure
Patient Disposition: Admit
Date of Disposition: 04/28/24
Time of Disposition: 23:35
Admit to: Med/Surg
Presentation/result/management discussed w/ accepting MD/DO: Hospitalist
Discharge Problem:
Intractable vomiting
Prescriptions:
No Action
atorvastatin 20 mg Tablet
20 mg PO DAILY
naltrexone 50 mg Tablet
50 mg PO DAILY
hydroxyzine HCl 25 mg Tablet
25 mg PO TIDPRN PRN (Reason: anxiety)
lisinopril 2.5 mg Tablet
2.5 mg PO DAILY
duloxetine 60 mg Capsule,Delayed Release(Dr/Ec)
60 mg PO DAILY
aripiprazole 2 mg Tablet
2 mg PO DAILY
Visbiome 112.5 billion cell Capsule
1 cap PO DAILY
Mounjaro 10 mg/0.5 mL Pen Injector
10 mg SC TU
oxycodone 5 mg tablet
5 - 10 mg PO Q4HPRN PRN (Reason: moderate to severe pain) Qty: 10 0RF
Referrals:
Christy Huff PA-C [Family Provider] -
Interventions
Interventions:
*General Assessment Last Done: 04/28/24 22:31
*ED COVID-19 Vaccine History Last Done: 04/28/24 22:31
ED-Skin Assessment Last Done: 04/28/24 22:32
Discharge Date and Time
Print Language: LATVIAN
[2024-04-28] MEDS: COMPAZINE 10 MG PO (17:34)
[2024-04-28 17:46] LABS: % Basophils 0.2 % (0-2); % Eosinophils 0.3 % (0-6); % Immature Granulocytes 0.3 % (0-0.5); % Lymphocytes 18.6 % (20.5-51.1); % Neutrophils 72.6 % (42.2-75.2); Absolute Lymphocytes 1.8 10^3/uL (1.2-3.4); Absolute Monocytes 0.8 10^3/uL (0.1-0.6); Hemoglobin 13.1 g/dL (12.0-16.0); Mean Corp Hgb Conc. 36.4 g/dL (33.0-37.0); Mean Corpuscular Hgb 33.4 pg (27.0-31.0); Mean Corpuscular Volume 91.8 fL (81.0-99.0); Mean Platelet Volume 9.8 fL (7.4-10.4); Nucleated Red Blood Cells % 0 %; Platelet Count 239 10^3/uL (130-400); Red Blood Cell Count 3.92 10^6/uL (4.20-5.40); Red Cell Dist. Width 11.5 % (11.5-14.5); White Blood Cell Count 9.6 10^3/uL (4.8-10.8)
[2024-04-28 18:16] LABS: ALT (SGPT) 37 U/L (0-35); AST (SGOT) 31 U/L (14-36); Albumin 4.1 g/dl (3.5-5.0); Alkaline Phosphatase 68 U/L (38-126); Blood Urea Nitrogen 3 mg/dl (7-17); Carbon Dioxide 30 mmol/L (22-30); Glucose 132 mg/dl (70-99); Total Bilirubin 0.9 mg/dl (0.2-1.3); Total Protein 6.4 g/dl (6.3-8.2); eGFR > 60.00
[2024-04-28 18:29] LABS: Chloride 101 mmol/L (98-107); Potassium 4.1 mmol/L (3.5-5.1); Sodium 137 mmol/L (135-145)
[2024-04-28] MEDS: ZOFRAN ODT (ORALLY DISINTEGRATING) 4 MG PO (19:50)
[2024-04-28] MEDS: REGLAN 10 MG IV (22:01)
[2024-04-28] MEDS: DILAUDID 0.5 MG IV (22:01)
[2024-04-28] MEDS: NSS 1000 IV (22:02)
[2024-04-28 22:05] VITALS: BP 153/88
[2024-04-28 23:00] VITALS: BP 143/90
[2024-04-29] VITALS (7 sets, daily range): BP systolic 108–137; BP diastolic 76–88; BMI 28.3
--- NOTE | 2024-04-29 00:25 | HPS.HSE ---
Addendum entered and electronically signed by Michael Garcia MD 04/29/24 08:21:
Patient seen and examined.
Patient is a 38 yo F with a PMH of anxiety/depression, HTN, HLD, active tobacco use, EtOH recovery, NIDDM, s/p x 2, and obesity s/p laparoscopic sleeve gastrectomy at [facility]. Ms. Mcgovern is s/p robotic cholecystectomy by
Sandip Madrid on 04/27/2024. She presents with persistent issues with nausea and vomiting. She reports almost continuous symptoms that are not clearly associated with oral intake or medication use. Currently she states that her symptoms are
improved, and denies any significant nausea and no episodes of vomiting overnight. She denies any chronic issues with dysphagia, nausea or vomiting, or reflux symptoms following her sleeve gastrectomy. Of note, she is currently on Mounjaro and was
taking this often to the time of her acute presentation to the ER.
Gen: NAD
Abd: soft, mild tenderness in RIGHT abdomen, ND, non-peritoneal, incisions c/d/i - no erythema or drainage, ecchymosis of RIGHT abdomen, soft
Labs reviewed
Patient is a 38 yo F p/w nausea and vomiting within 24 to 48 hours post robotic cholecystectomy
Current issues are most likely anesthesia and possible narcotic use combined with possible delayed gastric emptying from Mounjaro use. Does not appear to have chronic issues post sleeve state though may certainly be contributing. Symptoms have
improved. Plan for dietary advancement throughout the day. If symptoms persist over the next 24 to 48 hours would pursue further workup with UGI. All questions answered.
-- Fulls
-- Pain control: Tylenol, Oxycodone
-- OK to DC IVF if tolerating diet later today
-- Home meds
-- DVT: Lovenox
-- GI: PPI
Original Note:
Family Physician
-
Family Physician: Christy Huff PA-C
Chief Complaint
-
intractable vomiting post lap dylan 04/27/24
History of Present Illness
Patient is a 38 yo F with a PMH of HLD, HTN, ETOH Recovery, anxiety/depression , obesity s/p laparoscopic sleeve gastrectomy at [facility], NIDDM, active tobacco use, s/p x 2 is s/p cholecystectomy yesterday by DR Madrid. Started
with n/v after eating this am. Pt has vomited about 6 times, + 1 episode of diarrhea (small).
No fever. She reports [employer] does not work for her , however [employer] does.
Reports mild to moderate abdominal pain at this time. Of note she is on Mounjaro and her last dose was the day before presentation to the ER
ED treatment:
Multiple rounds of antinausea medication
IVF
Medical History
Past Medical History
Past Medical History: Reports HTN and Psychiatric (anxiety depression)
Past Surgical History: Reports Cholecystectomy (04/27/24), (x2) and Other (gastric sleeve)
Social History
Tobacco: Smoker (5-8 cigs)
Alcohol: Former (on naltrexone)
Drug: Marijuana
Personal: Single
Living: With Family
Family History
Family History: CAD and Other (colon ca)
Allergies / Home Medications
Allergies reflects when Allergies were last updated in [employer].
Home Medications with original date entered in [employer]
Allergy/Medication List:
Allergies
Allergy/AdvReac Type Severity Reaction Status Date / Time
No Known Allergies Allergy Verified 04/26/24 10:35
Home Medications
Lactobac no.2-Bifidobac no.1-S. thermo 112.5 billion cell capsule (Visbiome) 1 cap PO DAILY 04/26/24
aripiprazole 2 mg tablet 2 mg PO DAILY 04/26/24
atorvastatin 20 mg tablet 20 mg PO DAILY 04/26/24
duloxetine 60 mg capsule,delayed release 60 mg PO DAILY 04/26/24
hydroxyzine HCl 25 mg tablet 25 mg PO TIDPRN PRN anxiety 04/26/24
lisinopril 2.5 mg tablet 2.5 mg PO DAILY 04/26/24
naltrexone 50 mg tablet 50 mg PO DAILY 04/26/24
tirzepatide 10 mg/0.5 mL subcutaneous pen injector (Mounjaro) 10 mg SC TU 04/26/24
oxycodone 5 mg tablet 5 - 10 mg (1 - 2 x 5 mg) PO Q4HPRN PRN moderate to severe pain #10 tabs 04/27/24
Review of Systems
-
History Source: Patient
A 12 point ROS was completed and negative except as noted: Yes
EENT: Reports No Symptoms
Respiratory: Reports No Symptoms
Cardiac: Reports No Symptoms
Abdomen/GI: Reports Abdominal Pain (mild-mod abd pain especially with vomiting, small hematoma RLQ incisional site), Nausea, Vomiting and Diarrhea (one small bile colored)
: Reports No Symptoms
Musculoskeletal: Reports No Symptoms
Skin: Reports No Symptoms
Neurological: Reports No Symptoms
Endocrine: Reports No Symptoms
Hematologic/Lymphatic: Reports No Symptoms
Physical Exam
Vital Signs
Vital Signs
Temp Pulse Resp BP Pulse Ox
98.7 F 86 21 153/88 95
04/28/24 17:20 04/28/24 22:30 04/28/24 22:30 04/28/24 22:05 04/28/24 22:15
Physical Exam
General: Well Developed, Well Nourished, No Apparent Distress and Comfortable
HEENT: NormoCephalic, Moist mucous membranes, Atraumatic and Other (lip piercings )
Respiratory: Clear and Non Labored Respirations
Cardiac: S1/S2 and Regular Rhythm
Breast: Deferred by me
GI: Soft, Normal Bowel Sounds, Tender and Other (small hematoma RLQ incisional site)
Rectal: Deferred by Provider
Musculoskeletal: No Clubbing and No Cyanosis
Skin: Warm, Dry and Other (multiple tattoos, small hematoma RLQ incisional site)
Neuro: Awake, Alert, Oriented and AO x 3
Hematologic/Lymphatic: No Lymphadenopathy
Psych: Calm
Laboratory Results
-
04/28/24 17:40
04/28/24 17:40
Laboratory Results
Total Bilirubin 0.9 mg/dl (0.2-1.3) 04/28/24 17:40
AST 31 U/L (14-36) 04/28/24 17:40
ALT 37 U/L (0-35) H 04/28/24 17:40
Alkaline Phosphatase 68 U/L (38-126) 04/28/24 17:40
Data Reviewed
-
Lab Data: Labs Reviewed by me and Discussed with Physician
Impression/Plan
-
IMPRESSION:
intractable nausea post lap dylan 04/27/24
PLAN:
Admit to service of Dr Preez
Med surg obs
#intractable nausea and vomiting s/p lap dylan 04/27/24 (Dr Madrid)
-clears for now, advance as tolerated
-NSS @125
-antinausea meds: compazine iv or may need reglan iv if compazine ineffective
-Pain control: dialudid iv since unable to cortes po as this time
-ice pack to hematoma site prn
#Anxiety/depression
-cont duloxetine, aripiprazole, Hydroxyzine prn
#HLD
-cont statin
#HTN
-cont lisinopril
#ETOH sobriety
-natrexone
DVT proph: scd
Full code
[2024-04-29] MEDS: NSS 1000 IV ×2 (01:45→10:09)
--- NOTE | 2024-04-29 02:00 | PTCARENOTE ---
Patient is a 38 yo F arrived from ED at 01:30. Pt has 5 lap sites post Lap Sonya at on 04/27. PMH of HLD, HTN, ETOH Recovery, anxiety/depression , obesity s/p laparoscopic sleeve gastrectomy at [facility], NIDDM, active tobacco use, s/p
x 2 is s/p cholecystectomy yesterday by Dr Madrid. Started with n/v after eating this am. Pt has vomited about 6 times, + 1 episode of diarrhea (small).Pt states Sciodermazine not [employer] works for her. Reported mild to moderate abdominal pain
in the ED, resolved before coming to 2S. IV fluids order with Clear Liquid Diet. Pt AOx3, bed in a low position, call light in reach,care ongoing
--- NOTE | 2024-04-29 09:56 | CM ---
Reviewed the chart notes and spoke with the patient at the bedside. The patient s/p robotic cholecystectomy on 04/27/24 and d/c'd to home with no needs. Patient presents with nausea and vomiting. The patient resides with multiple family members
(mother, brother, son, dtr, significant other) in a two story home with two steps to enter. The patient reports no DME/VN/SNF in the past. The patient confirmed her pharmacy of choice is [facility] and PCP is Dr. Juan Pablo Huff. CM
continues to be available to patient/family and is monitoring medical plan for needs at discharge.
Plan: Discharge to home when medically stable. No anticipated needs identified at this time.
[2024-04-29] MEDS: NSS (PRESERVATIVE FREE) 10 ML IV (10:09)
[2024-04-29] MEDS: PROTONIX IV 40 MG IV (10:10)
[2024-04-29] MEDS: VISBIOME 1 CAP PO (10:15)
[2024-04-29] MEDS: ABILIFY 2 MG PO (10:15)
[2024-04-29] MEDS: ZESTRIL 2.5 MG PO (10:16)
[2024-04-29] MEDS: LIPITOR 20 MG PO (10:18)
[2024-04-29] MEDS: CYMBALTA DELAYED RELEASE 60 MG PO (10:26)
--- NOTE | 2024-04-29 16:15 | W.DCSUMMARY ---
Discharge Summary
Discharge Data
Date of Admission: 04/29/24
Date of Discharge: 04/29/24
-
Pending Results: No
Hospital Course
Ms Mcgovern is a 38 yo female who underwent laparoscopic cholecystectomy on April 27 for chronic cholecystitis and was discharged to home post operatively to recover. She returned through the ED the following evening with intractable nausea and
vomiting and was kept overnight for observation. She did well with antiemetics and IV fluids and diet was able to be advanced and well tolerated in small amounts by the following day. She was discharged to home with outpatient follow up planned in
the coming weeks.
Discharge Plan
-
Patient Disposition: Home (Routine Discharge)
Discharge Diagnosis/Procedures: Nausea/vomiting after recent cholecystectomy
Condition: Good
Diet: As tolerated
Activity: No strenuous activity
Bathing Restrictions: OK to Shower
Activity Restrictions/Additional Instructions:
Follow your previous post operative instructions regarding lifting restrictions/showering etc
Referrals:
Sandip Madrid MD [Active] - in two to four weeks
Christy Huff PA-C [Family Provider] -
Additional Discharge Medication Instructions: Take over the counter Tylenol and Ibuprofen for pain. If the narcotics are needed for severe pain, hold your dosage naltrexone dosage.
Prescriptions:
New
ondansetron 4 mg tablet,disintegrating
4 mg PO Q8HPRN PRN (Reason: nausea/vomiting) Qty: 10 0RF
Continued
atorvastatin 20 mg Tablet
20 mg PO DAILY
naltrexone 50 mg Tablet
50 mg PO DAILY
hydroxyzine HCl 25 mg Tablet
25 mg PO TIDPRN PRN (Reason: anxiety)
lisinopril 2.5 mg Tablet
2.5 mg PO DAILY
duloxetine 60 mg Capsule,Delayed Release(Dr/Ec)
60 mg PO DAILY
aripiprazole 2 mg Tablet
2 mg PO DAILY
Visbiome 112.5 billion cell Capsule
1 cap PO DAILY
Mounjaro 10 mg/0.5 mL Pen Injector
10 mg SC TU
oxycodone 5 mg tablet
5 - 10 mg PO Q4HPRN PRN (Reason: moderate to severe pain) Qty: 10 0RF
Discharge Orders:
Discharge Patient (As Directed); Ordered 04/29/24
Ordered By: Fernanda Plata
Discharge Date and Time
Print Language: BELARUSIAN
[2024-04-29] MEDS: NSS IV (19:19)
--- NOTE | 2024-04-29 20:13 | PTCARENOTE ---
pt IV pulled, d/c documentation reviewed and all belonging with pt upon d/c at 20:00, all pt questions answered dx education given GI, pt was appreciative of care.
== END 2024-04-29 20:00 | disposition home or self-care (01) ==
LOC: 2 SOUTH 00:33
PROVIDERS: Nurse Practitioner; ADMITTING PHYSICIAN Surgery; EMERGENCY PHYSICIAN Student in an Organized Health Care Education/Training Program; FAMILY PHYSICIAN Physician Assistant Medical
DX: R11.2 Nausea with vomiting, unspecified (principal); R19.7 Diarrhea, unspecified; R10.9 Unspecified abdominal pain; F32.A Depression, unspecified; F41.9 Anxiety disorder, unspecified; E78.00 Pure hypercholesterolemia, unspecified; I10 Essential (primary) hypertension; E11.9 Type 2 diabetes mellitus without complications; F17.200 Nicotine dependence, unspecified, uncomplicated; Z83.3 Family history of diabetes mellitus; Z80.0 Family history of malignant neoplasm of digestive organs; Z82.49 Family history of ischemic heart disease and other diseases of the circulatory system; Z90.49 Acquired absence of other specified parts of digestive tract; Z79.85 Long-term (current) use of injectable non-insulin antidiabetic drugs; Z98.84 Bariatric surgery status
CPT/HCPCS: 80053; 85025; 96374; 96375; 99285; 99406; G0378

== ENCOUNTER 2024-05-10 17:51 | Emergency (ER) | payer OTHER, SELFPAY ==
[2024-05-10 17:54] VITALS: BP 180/92
[2024-05-10 18:24] LABS: HCG, Serum Qualitative Screen Negative
[2024-05-10 18:28] LABS: ALT (SGPT) 20 U/L (0-35); AST (SGOT) 21 U/L (14-36); Albumin 4.5 g/dl (3.5-5.0); Alkaline Phosphatase 79 U/L (38-126); Blood Urea Nitrogen 6 mg/dl (7-17); Calcium 9.9 mg/dl (8.4-10.2); Carbon Dioxide 22 mmol/L (22-30); Chloride 104 mmol/L (98-107); Glucose 168 mg/dl (70-99); Potassium 4.4 mmol/L (3.5-5.1); Sodium 136 mmol/L (135-145); Total Bilirubin 0.9 mg/dl (0.2-1.3); Total Protein 7.1 g/dl (6.3-8.2); eGFR > 60.00
[2024-05-10 19:07] VITALS: BMI 27.3
[2024-05-10 19:12] VITALS: BP 161/106
[2024-05-10 19:19] LABS: % Basophils 0.2 % (0-2); % Eosinophils 0.1 % (0-6); % Immature Granulocytes 0.3 % (0-0.5); % Lymphocytes 8.3 % (20.5-51.1); % Monocytes 3.7 % (1.7-9.3); % Neutrophils 87.4 % (42.2-75.2); Absolute Lymphocytes 0.8 10^3/uL (1.2-3.4); Absolute Monocytes 0.4 10^3/uL (0.1-0.6); Absolute Neutrophils 8.7 10^3/uL (1.4-6.5); Hematocrit 38.1 % (37.0-47.0); Mean Corp Hgb Conc. 36.7 g/dL (33.0-37.0); Mean Corpuscular Hgb 32.8 pg (27.0-31.0); Mean Corpuscular Volume 89.2 fL (81.0-99.0); Mean Platelet Volume 9.7 fL (7.4-10.4); Nucleated Red Blood Cells % 0 %; Platelet Count 320 10^3/uL (130-400); Red Blood Cell Count 4.27 10^6/uL (4.20-5.40); Red Cell Dist. Width 12.3 % (11.5-14.5)
--- NOTE | 2024-05-10 19:26 | ED.GENMED ---
History of Present Illness
<Elida Lozano MD, Resident - Last Filed: 05/10/24 23:02>
General
Chief Complaint: Abdominal Symptoms
Source: patient
Exam Limitations: none
Time Seen by Provider: 05/10/24 18:32
Nursing documentation reviewed up to this point in time: agreed with
History of Present Illness
History of Present Illness:
38yo F with PMH recent chronic cholecystis s/p robotic assist lscp dylan 04/27, HTN, HLD, DM, s/p gastric sleeve surgery 2010, who presents from home to ED for nausea, vomiting, abdominal pain. Her nausea/vomiting began this morning after eating
peanut butter crackers. Since then, she has not been able to hold down any solids or liquids. She has been throwing up yellow-green emesis; no bloody or coffee ground emesis. A few hours ago she also developed abdominal cramping and chest discomfort
which are worse during vomiting. At home she tried 2 zofran and mylanta with no relief. Reports recent constipation, though BMs this week have been soft/easy to pass; no diarrhea or black/bloody stools. No pain/difficulty swallowing. Last took
mounjaro 1 week ago.
She was recently seen in ED on 04/28 POD#1 for similar symptoms and kept overnight for observation; between then and this morning she returned to baseline health with no nausea/vomiting. Postop pain is resolving. She notes a stable hematoma on right
side.
Past History
<Elida Lozano MD, Resident - Last Filed: 05/10/24 23:02>
Past History
ED Past Medical History: HTN, Hypercholesterolemia and IDDM
ED Past Surgical History: Cholecystectomy (04/27/24) and Other (Gastric sleeve 2010)
Patient has exhibited threatening behavior?: No
Social History
Tobacco: Smoker (6 cig per day)
Alcohol: Former
Drug: Marijuana (edibles nightly)
Personal: Single
Living: alone
Family History
Family History: Diabetes and Other (Colon cancer, coronary artery disease)
Review of Systems
<Elida Lozano MD, Resident - Last Filed: 05/10/24 23:02>
Review of Systems
Allergies reviewed?: Yes
Constitutional: Reports no symptoms; Denies fever, fatigue or chills
EENT: Reports no symptoms
Respiratory: Reports no symptoms; Denies cough, hemoptysis or trouble breathing
Cardiac: Reports chest pain (see HPI); Denies diaphoresis, palpitations or syncope
ABD/GI: Reports abdominal pain (cramp), nausea, vomiting and other (stable hematoma); Denies diarrhea, constipated, bloody stools or black stools
: Reports no symptoms; Denies dysuria, frequency, incontinence or difficulty voiding
Musculoskeletal: Reports no symptoms
Skin: Reports no symptoms
Neurological: Reports no symptoms; Denies dizzy, headache or weakness
Endocrine: Reports no symptoms
Hematologic/Lymphatic: Reports no symptoms; Denies bleeding
Psychiatric: Reports no symptoms
Phy Exam
<Elida Lozano MD, Resident - Last Filed: 05/10/24 23:02>
General Physical Exam
General Presentation: well appearing and no apparent distress
General age: appears stated age
General Skin: warm and dry
General Habitus: normal
General Mental: alert
Cardiovascular Exam
Cardiovascular Exam: regular rate/rhythm, no edema and no murmur
Pulmonary Exam
Pulmonary Exam: lungs clear, no respiratory distress, no crackles, no rhonchi, no wheezing, no cough and other (nonlabored breathing)
Oxygen Status: room air
Gastrointestinal Exam
Gastrointestinal Exam: normal bowel sounds, soft, non distended, surgical scar (well healing incisions; clean dry intact; no dehiscence drainage erythema), tender (mild tenderness to palpation LUQ/epigastrium; no rebound/rigidity/guarding) and other
(hematoma right abdominal wall, nontender)
Neurological Exam
Neurological Exam: alert, oriented x3 and speech normal
Psychiatric Exam
Psychiatric Exam: normal mood/affect
Course
<Elida Lozano MD, Resident - Last Filed: 05/10/24 23:02>
Orders/Labs/Results
Orders:
Orders
05/10/24 17:56
Test Result ONCE
05/10/24 18:02
Comprehensive Metabolic Panel Urgent
HCG, Serum Qualitative Screen Urgent
Lipase Urgent
Comment: ADD ON
05/10/24 19:12
Complete Blood Count/With Diff Urgent
Comment: ADDON
05/10/24 19:29
0.9% Sodium Chloride 1000 ml [Nss] 1,000 ml IV BOLUS
Prochlorperazine [Compazine] 5 mg IV NOW STA
05/10/24 19:31
EKG [Electrocardiogram (*1)] Urgent
Reason for Study: Chest Pain
05/10/24 19:38
Add On- LAB Urgent
Tests Added?: Lipase
05/10/24 19:45
CT Abd/pelvis W Iv Cont Urgent
Comment: pavithra richardson 2 wks ago
Reason For Exam: general abd pain, vomiting
Morphine Sulfate 4 mg IV NOW STA
05/10/24 19:46
CR Chest - 2 Views Urgent
Comment:
Reason For Exam: chest and back pain after vomiting
Abnormal Lab Results
05/10/24 05/10/24
18:02 19:12
MCH 32.8 H pg
(27.0-31.0)
Absolute Neuts (auto) 8.7 H 10^3/uL
(1.4-6.5)
Absolute Lymphs (auto) 0.8 L 10^3/uL
(1.2-3.4)
Neutrophils % 87.4 H %
(42.2-75.2)
Lymphocytes % 8.3 L %
(20.5-51.1)
BUN 6 L mg/dl
(7-17)
Creatinine 0.5 L mg/dL
(0.6-1.0)
Glucose 168 H mg/dl
(70-99)
05/10/24 19:12
05/10/24 18:02
Vital Signs
Initial and Last Documented VS:
Initial Vital Signs
Temp Pulse Resp BP Pulse Ox
98.2 F 68 20 180/92 98
05/10/24 17:54 05/10/24 17:54 05/10/24 17:54 05/10/24 17:54 05/10/24 17:54
Last Documented Vital Signs
Temp Pulse Resp BP Pulse Ox
98.2 F 65 16 145/87 99
05/10/24 17:54 05/10/24 20:30 05/10/24 20:30 05/10/24 20:00 05/10/24 20:30
<Eliazar Otoole, DO - Last Filed: 05/10/24 19:49>
Orders/Labs/Results
Orders:
Orders
05/10/24 17:56
Test Result ONCE
05/10/24 18:02
Comprehensive Metabolic Panel Urgent
HCG, Serum Qualitative Screen Urgent
Lipase Urgent
Comment: ADD ON
05/10/24 19:12
Complete Blood Count/With Diff Urgent
Comment: ADDON
05/10/24 19:29
0.9% Sodium Chloride 1000 ml [Nss] 1,000 ml IV BOLUS
Prochlorperazine [Compazine] 5 mg IV NOW STA
05/10/24 19:31
EKG [Electrocardiogram (*1)] Urgent
Reason for Study: Chest Pain
05/10/24 19:38
Add On- LAB Urgent
Tests Added?: Lipase
05/10/24 19:45
CT Abd/pelvis W Iv Cont Urgent
Comment: lap dylan 2 wks ago
Reason For Exam: general abd pain, vomiting
Morphine Sulfate 4 mg IV NOW STA
05/10/24 19:46
CR Chest - 2 Views Urgent
Comment:
Reason For Exam: chest and back pain after vomiting
Abnormal Lab Results
05/10/24 05/10/24
18:02 19:12
MCH 32.8 H pg
(27.0-31.0)
Absolute Neuts (auto) 8.7 H 10^3/uL
(1.4-6.5)
Absolute Lymphs (auto) 0.8 L 10^3/uL
(1.2-3.4)
Neutrophils % 87.4 H %
(42.2-75.2)
Lymphocytes % 8.3 L %
(20.5-51.1)
BUN 6 L mg/dl
(7-17)
Creatinine 0.5 L mg/dL
(0.6-1.0)
Glucose 168 H mg/dl
(70-99)
05/10/24 19:12
05/10/24 18:02
Vital Signs
Initial and Last Documented VS:
Initial Vital Signs
Temp Pulse Resp BP Pulse Ox
98.2 F 68 20 180/92 98
05/10/24 17:54 05/10/24 17:54 05/10/24 17:54 05/10/24 17:54 05/10/24 17:54
Last Documented Vital Signs
Temp Pulse Resp BP Pulse Ox
98.2 F 65 16 145/87 99
05/10/24 17:54 05/10/24 20:30 05/10/24 20:30 05/10/24 20:00 05/10/24 20:30
<Elida Lozano MD, Resident - Last Filed: 05/10/24 23:02>
MDM/Problems Addressed
Differential Diagnosis Includes:
Nausea/vomiting unclear etiology-- viral gastritis, postoperative complication, daily marijuana usage, constipation associated with recent oxycodone use for postop pain
MDM/Problems Addressed:
38yo F with PMH recent cholecystectomy who presents to ED with N/V and abd/chest pain
CBC/CMP ordered prior to evaluation largely unremarkable-- no leukocytosis, no anemia, LFTs wnl. Hcg neg.
Unable to tolerate oral hydration today-- will give 1L IV NS, IV compazine, and keep NPO at this time
Will check abd CT to evaluate for fluid collection, abscess, pancreatitis
Check lipase
Suspect chest discomfort is musculoskeletal in nature due to ongoing emesis
Check EKG and chest xray
If not resolving with management of N/V, consider CT chest vs esophagram to evaluate esoph perforation though this is lower on differential at this time
<Elida Lozano MD, Resident - Last Filed: 05/10/24 23:02>
*Critical Care Note
Total Time (30-74mins, 75-104mins- exclusive of procedures): Not Applicable
<Elida Lozano MD, Resident - Last Filed: 05/10/24 23:02>
Update Note
Update Note:
2034: Lipase wnl-- not concerning for pancreatitis. EKG NSR-- chest discomfort less likely cardiac in nature.
2114: At bedside to reassess patient-- she was sleeping comfortably and was not disturbed. Per her mother at bedside, compazine relieved nausea. Imaging completed, awaiting radiology reports.
2239: CT abd showed mild to moderate intrahepatic biliary dilation, which is consistent with recent cholecystectomy. Subcutaneous hematoma seen in R anterior abdominal wall, measuring 6.3 cm, consistent with physical exam. Chest xray showed no
pneumoperitoneum, pneumomediastinum, acute cardiopulm disease. Given no acute findings on radiology and nausea controlled, stable for discharge home. Will prescribe few days of prn compazine for nausea control. Recommend miralax prn for
constipation. Should call general surgeon tomorrow to update them on nausea requiring ER evaluation and follow up with the office as scheduled. Reviewed above with patient and mother at bedside-- they are understanding and agreeable with plan.
ED Attending Note
<Elida Lozano MD, Resident - Last Filed: 05/10/24 23:02>
-
Portions of this chart may have been created with voice recognition software.� Occasional wrong word or��sound alike� substitutions may have occurred due to the inherent limitations of voice recognition software.
<Eliazar Otoole, DO - Last Filed: 05/10/24 19:49>
ED Attending Note
Patient seen and examined by attending physician: Yes
I performed a history and physical exam of patient and discussed management with resident, I reviewed resident's note and agree with documented findings and plan of care.: Yes
ED Attending Note:
I have seen and evaluated the patient with a [id number] encounter. I have spoken to the resident and involved in the medical history, the physical exam, medical decision making.
Evaluation and management service: agree unless noted differently below.
Results interpretation: agree unless noted differently below.
Focused HPI: 38-year-old female presenting for evaluation of persistent nausea and vomiting. Patient had laparoscopic cholecystectomy a few weeks ago. Since then, she has been in the emergency department with the same episode of nausea and
vomiting. She observed overnight and symptoms improved with Compazine. Symptoms reoccurred this morning. Patient now complaining of chest and back pain
Physical exam: Dry mucous membranes. Relatively benign abdomen.
Medical Decision Making: Given the recurrent symptoms, will obtain CT to rule out biliary leak. Given the chest and back pain after vomiting, will obtain x-ray to rule out pneumomediastinum or pneumothorax.
Discharge Plan
Departure
Patient Disposition: Home (Routine Discharge)
Date of Disposition: 05/10/24
Time of Disposition: 22:46
Patient with high blood pressure during this ER visit?: Yes
Discharge Problem:
Nausea & vomiting
Instructions: Nausea and vomiting in adults - ED discharge instructions
Prescriptions:
New
prochlorperazine maleate [Compazine] 5 mg tablet
5 mg PO TID PRN (Reason: nausea and vomiting) Qty: 10 0RF
No Action
atorvastatin 20 mg Tablet
20 mg PO DAILY
naltrexone 50 mg Tablet
50 mg PO DAILY
hydroxyzine HCl 25 mg Tablet
25 mg PO TIDPRN PRN (Reason: anxiety)
lisinopril 2.5 mg Tablet
2.5 mg PO DAILY
duloxetine 60 mg Capsule,Delayed Release(Dr/Ec)
60 mg PO DAILY
aripiprazole 2 mg Tablet
2 mg PO DAILY
Visbiome 112.5 billion cell Capsule
1 cap PO DAILY
Mounjaro 10 mg/0.5 mL Pen Injector
10 mg SC TU
oxycodone 5 mg tablet
5 - 10 mg PO Q4HPRN PRN (Reason: moderate to severe pain) Qty: 10 0RF
ondansetron 4 mg tablet,disintegrating
4 mg PO Q8HPRN PRN (Reason: nausea/vomiting) Qty: 10 0RF
Referrals:
Sandip Madrid MD [Active] - Call in 1-3 days for appt (Call your surgeon's office tomorrow to update them. Follow up with them as scheduled. )
Christy Huff PA-C [Family Provider] -
Activity Restrictions/Additional Instructions:
You were seen in the Emergency Room for nausea and vomiting.
Your CT scan and chest xray were reassuring. There were findings on your abdomen/pelvic CT that were expected based on your recent surgery.
Your symptoms were improved with compazine, so we provided a prescription for a few days of as needed compazine to help with nausea.
Please call your surgeon tomorrow to update them that you were seen in ED. Follow up with them as scheduled.
If you have worsening nausea/vomiting, cannot hold down any fluids, severe abdominal pain, fevers/chills, difficulty breathing, please return to ED for reevaluation.
Interventions
Interventions:
*Risk Screen - Suicide Last Done: 05/10/24 17:57
*General Assessment Last Done: 05/10/24 19:43
*Neglect/Abuse Screening Last Done: 05/10/24 19:17
ED- Fall Risk Assessment Last Done: 05/10/24 19:17
EL-Fyclet-Kogkcimwmi Assessment Last Done: 05/10/24 19:16
Discharge Date and Time
Print Language: ROMANIAN
[2024-05-10] MEDS: COMPAZINE 5 MG IV (19:40)
[2024-05-10] MEDS: NSS 1000 IV (19:40)
[2024-05-10] MEDS: MORPHINE SULFATE 4 MG IV (19:51)
[2024-05-10 20:00] VITALS: BP 145/87
[2024-05-10 20:10] LABS: Lipase 106 U/L (23-300)
== END 2024-05-10 23:10 | disposition home or self-care (01) ==
LOC: EMR 17:51
PROVIDERS: Emergency Medicine; EMERGENCY PHYSICIAN Student in an Organized Health Care Education/Training Program; FAMILY PHYSICIAN Physician Assistant Medical
DX: R11.2 Nausea with vomiting, unspecified (principal); R07.89 Other chest pain; R10.9 Unspecified abdominal pain; I10 Essential (primary) hypertension; E78.00 Pure hypercholesterolemia, unspecified; E11.9 Type 2 diabetes mellitus without complications; F17.210 Nicotine dependence, cigarettes, uncomplicated; Z90.49 Acquired absence of other specified parts of digestive tract; Z98.84 Bariatric surgery status; Z79.4 Long term (current) use of insulin
CPT/HCPCS: 99285; 96374; 96375; 96361; 71046; 74177; 80053; 83690; 84703; 85025; 93005; Q9967

== ENCOUNTER 2024-07-20 06:22 | Day surgery (SDC) | payer OTHER, SELFPAY ==
[2024-07-20 07:52] LABS: Glucose - Point of Care 221 mg/dl (70-99)
== END 2024-07-20 09:00 | disposition home or self-care (01) ==
LOC: GI 06:22
PROVIDERS: ATTENDING PHYSICIAN Internal Medicine Gastroenterology
DX: R12 Heartburn (principal); R11.2 Nausea with vomiting, unspecified; K31.89 Other diseases of stomach and duodenum; Z98.84 Bariatric surgery status
CPT/HCPCS: 43239; 88305; 82962; 88342

== ENCOUNTER 2024-10-15 02:25 | Observation (INO) | payer OTHER, SELFPAY ==
[2024-10-14 17:23] VITALS: BP 153/94
[2024-10-14 17:36] LABS: % Basophils 0.3 % (0-2); % Eosinophils 0.2 % (0-6); % Immature Granulocytes 0.4 % (0-0.5); % Lymphocytes 8.9 % (20.5-51.1); % Monocytes 2.4 % (1.7-9.3); % Neutrophils 87.8 % (42.2-75.2); Absolute Monocytes 0.3 10^3/uL (0.1-0.6); Absolute Neutrophils 9.5 10^3/uL (1.4-6.5); Hematocrit 41.6 % (37.0-47.0); Hemoglobin 15.2 g/dL (12.0-16.0); Mean Corp Hgb Conc. 36.5 g/dL (33.0-37.0); Mean Corpuscular Hgb 32.4 pg (27.0-31.0); Mean Corpuscular Volume 88.7 fL (81.0-99.0); Mean Platelet Volume 9.9 fL (7.4-10.4); Nucleated Red Blood Cells % 0 %; Platelet Count 261 10^3/uL (130-400); Red Blood Cell Count 4.69 10^6/uL (4.20-5.40); White Blood Cell Count 10.8 10^3/uL (4.8-10.8)
[2024-10-14 17:49] LABS: HCG, Serum Qualitative Screen Negative
[2024-10-14 17:55] LABS: ALT (SGPT) 27 U/L (0-35); AST (SGOT) 22 U/L (14-36); Albumin 4.7 g/dl (3.5-5.0); Alkaline Phosphatase 98 U/L (38-126); Blood Urea Nitrogen 9 mg/dl (7-17); Calcium 10.2 mg/dl (8.4-10.2); Carbon Dioxide 23 mmol/L (22-30); Chloride 107 mmol/L (98-107); Glucose 199 mg/dl (70-99); Lipase 158 U/L (23-300); Sodium 138 mmol/L (135-145); Total Protein 7.4 g/dl (6.3-8.2); eGFR > 60.00
[2024-10-14 19:17] VITALS: BMI 25.4
--- NOTE | 2024-10-14 19:30 | ED.GENMED ---
History of Present Illness
<Pete Gallegos MD - Last Filed: 10/16/24 02:08>
General
Chief Complaint: Abdominal Symptoms
Source: patient
Exam Limitations: none
Time Seen by Provider: 10/14/24 18:14
Nursing documentation reviewed up to this point in time: agreed with
History of Present Illness
History of Present Illness:
39-year-old female with a past medical history of hypertension, hyperlipidemia, gastric sleeve, diabetes who presents to the ER for evaluation of nausea and vomiting with some abdominal discomfort. Patient reports that she has a long history of
nausea/vomiting with upper abdominal discomfort associated with Mounjaro. Nevertheless she says that she has continued to take in consultation with her doctors to help manage her diabetes. She says that today she ate a slice of pizza and shortly
thereafter she began to feel nausea and has had profuse vomiting since. She has she has some mild epigastric discomfort as well. Denies any diarrhea. Denies fevers or chills. She denies any other complaints. She says that this is identical to
episode she has had in the past from Mounjaro. She does have prior history of gastric sleeve as well as cholecystectomy in April 2024. She did take 2 Zofran ODT's without improvement but says that typically IV medications tend to help control
her symptoms.
Past History
<Pete Gallegos MD - Last Filed: 10/16/24 02:08>
Past History
ED Past Medical History: HTN, Hypercholesterolemia and IDDM
ED Past Surgical History: Cholecystectomy (04/27/24) and Other (Gastric sleeve 2010)
Patient has exhibited threatening behavior?: No
Social History
Tobacco: Smoker (6 cig per day)
Alcohol: Former
Drug: Marijuana (edibles nightly)
Personal: Single
Living: alone
Family History
Family History: Diabetes and Other (Colon cancer, coronary artery disease)
Review of Systems
<Pete Gallegos MD - Last Filed: 10/16/24 02:08>
Review of Systems
All Other Systems: ROS reviewed and negative except as documented in HPI and ROS
Constitutional: Denies fever or chills
Respiratory: Denies trouble breathing
Cardiac: Denies chest pain
ABD/GI: Reports abdominal pain, nausea and vomiting; Denies diarrhea
: Denies flank pain
Musculoskeletal: Denies neck pain or back pain
Neurological: Denies headache
Phy Exam
<Pete Gallegos MD - Last Filed: 10/16/24 02:08>
Physical Exam
Physical Exam:
General: Awake, alert, oriented x3; holding emesis bag but nontoxic
Head: Normocephalic, atraumatic
Eyes: Conjunctiva normal, sclera anicteric
Throat: Airway intact, handling secretions
Neck: Trachea midline, supple without meningismus
Lungs: Clear to auscultation bilaterally, no wheezing, rales, rhonchi
Heart: Regular rate and rhythm, no murmurs, gallops, or rubs
Abd: Soft, non distended, nontender to deep palpation
Neuro: No gross deficits
Extremities: Warm and well-perfused
Scores
<Pete Gallegos MD - Last Filed: 10/16/24 02:08>
Heart Failure Risk
Heart Failure Risk Score: Not Applicable
Heart Score for Chest Pain Patients
STEMI patient?: Not applicable
Withdrawal Assessment of Alcohol
Withdrawal Assessment Completed?: Not applicable
Course
<Pete Gallegos MD - Last Filed: 10/16/24 02:08>
Orders/Labs/Results
Orders:
Orders
10/14/24 17:27
Test Result ONCE
10/14/24 17:31
Complete Blood Count/With Diff Urgent
Comprehensive Metabolic Panel Urgent
HCG, Serum Qualitative Screen Urgent
Lipase Urgent
10/14/24 19:09
Ondansetron Injectable [Zofran] 4 mg IV NOW STA
10/14/24 19:13
Morphine Sulfate 4 mg IV NOW STA
10/14/24 19:14
0.9% Sodium Chloride 1000 ml [Nss] 1,000 ml IV BOLUS
10/14/24 19:34
Electrocardiogram (*1) Urgent
Reason for Study: Chest Pain
EKG- Treatment ONCE
10/14/24 19:43
Troponin I Urgent
10/14/24 20:03
CR Obstruct Series W/pa Chest Urgent
Comment:
Reason For Exam: n/v, abd pain
10/14/24 20:32
Diphenhydramine [Benadryl] 25 mg IV NOW STA
Metoclopramide [Reglan] 10 mg IV NOW STA
10/14/24 21:15
0.9% Sodium Chloride 1000 ml [Nss] 1,000 ml IV 75 mls/hr
10/15/24 01:53
droPERidol [Inapsine] 0.625 mg IV NOW STA
10/15/24 02:15
Admit/Transfer Patient As Directed
Co-Sign Provider:
Level of Care: Observation services
Assign to:: Medical/Surgical
Physician / Group: [facility]
Diagnosis: N/V
PRN Pain Medication Management As Directed
May give lesser potent ordered pain med per pt: Yes
preference::
Protocol:: Medication orders for pain may be administered in a
manner that supports deferring to patient preference
when the pt is:
- Requesting an ordered lesser potent pain medication.
Least to most potent pain medications are defined
as: acetaminophen < NSAID < tramadol < opioids
(morphine, oxycodone, hydromorphone).
- Requesting a lesser dose of the same medication IF
ORDERED.
- Requesting a less intrusive route of administration
if both routes are prescribed by the provider (PO <
IV).
10/15/24 02:16
Code Status As Directed
Resuscitation Status: Full Code
10/15/24 03:00
Flush (0.9% Sodium Chloride) [Flush (Nss)] See Dose Instructions IV PER PROTOCOL
10/15/24 03:56
Acetaminophen [Tylenol] 650 mg PO Q4HPRN PRN
Dextrose 50%-Water [Dextrose 50% Syringe] 12.5 grams IV [id number] PRN
Glucagon [GlucaGen] 1 mg IM PRN PRN
HydrOXYZINE [Atarax] 25 mg PO TIDPRN PRN anxiety
Lactated Ringers [Lr] 1,000 ml IV 150 mls/hr
Ondansetron Injectable [Zofran] 4 mg IV Q6HPRN PRN
Prochlorperazine [Compazine] 5 mg IV Q6HPRN PRN
Trimethobenzamide [Tigan] 200 mg IM Q6HPRN PRN
10/15/24 03:56
Activity As Directed
Activity Level: Ambulate
Bedside Glucose Monitoring As Directed
Frequency: AC&HS
Additional Instructions:: Change to q6h if pt on TPN, tube feeding or not eating
I/O [Intake/ Output] As Directed
Frequency: Per unit guidelines
Vital Signs As Directed
Frequency: Per unit guidelines
Weight As Directed
Frequency: Daily
Oxygen Therapy [O2 Therapy] [RESP] Routine
Titrate/Wean O2 to maintain O2 sat greater than (%): 94
DX Deep Vein Thrombosis Video Routine
10/15/24 06:00
EKG [Electrocardiogram (*1)] IN AM
Reason for Study: QTc Monitoring
10/15/24 06:39
Basic Metabolic Panel IN AM
Complete Blood Count/No Diff IN AM
Glycohemoglobin (HgbA1c) IN AM
10/15/24 07:30
Insulin Aspart Corrective Low [Novolog Flexpen-Low Resistance] See Protocol SC AC
10/15/24 08:00
ARIPiprazole [Abilify] 5 mg PO DAILY
Duloxetine Delayed Release [Cymbalta Delayed Release] 30 mg PO DAILY
Pantoprazole [Protonix IV] 40 mg IV DAILY
10/15/24 18:00
Enoxaparin Sodium [Lovenox] 40 mg SC QPM
Abnormal Lab Results
10/14/24
17:31
MCH 32.4 H pg
(27.0-31.0)
Absolute Neuts (auto) 9.5 H 10^3/uL
(1.4-6.5)
Absolute Lymphs (auto) 1.0 L 10^3/uL
(1.2-3.4)
Neutrophils % 87.8 H %
(42.2-75.2)
Lymphocytes % 8.9 L %
(20.5-51.1)
Creatinine 0.5 L mg/dL
(0.6-1.0)
Glucose 199 H mg/dl
(70-99)
10/14/24 17:31
10/14/24 17:31
Vital Signs
Initial and Last Documented VS:
Initial Vital Signs
Temp Pulse Resp BP Pulse Ox
36.4 C 81 20 153/94 97
10/14/24 17:23 10/14/24 17:23 10/14/24 17:23 10/14/24 17:23 10/14/24 17:23
Last Documented Vital Signs
Temp Pulse Resp BP Pulse Ox
36.7 C 86 16 118/76 97
10/15/24 15:45 10/15/24 15:45 10/15/24 15:45 10/15/24 15:45 10/15/24 15:45
radha;DO Kwan Morin Last Filed: 10/15/24 01:56>
Orders/Labs/Results
Orders:
Orders
10/14/24 17:27
Test Result ONCE
10/14/24 17:31
Complete Blood Count/With Diff Urgent
Comprehensive Metabolic Panel Urgent
HCG, Serum Qualitative Screen Urgent
Lipase Urgent
10/14/24 19:09
Ondansetron Injectable [Zofran] 4 mg IV NOW STA
10/14/24 19:13
Morphine Sulfate 4 mg IV NOW STA
10/14/24 19:14
0.9% Sodium Chloride 1000 ml [Nss] 1,000 ml IV BOLUS
10/14/24 19:34
Electrocardiogram (*1) Urgent
Reason for Study: Chest Pain
EKG- Treatment ONCE
10/14/24 19:43
Troponin I Urgent
10/14/24 20:03
CR Obstruct Series W/pa Chest Urgent
Comment:
Reason For Exam: n/v, abd pain
10/14/24 20:32
Diphenhydramine [Benadryl] 25 mg IV NOW STA
Metoclopramide [Reglan] 10 mg IV NOW STA
10/14/24 21:15
0.9% Sodium Chloride 1000 ml [Nss] 1,000 ml IV 75 mls/hr
10/15/24 01:53
droPERidol [Inapsine] 0.625 mg IV NOW STA
10/15/24 02:15
Admit/Transfer Patient As Directed
Co-Sign Provider:
Level of Care: Observation services
Assign to:: Medical/Surgical
Physician / Group: [facility]
Diagnosis: N/V
PRN Pain Medication Management As Directed
May give lesser potent ordered pain med per pt: Yes
preference::
Protocol:: Medication orders for pain may be administered in a
manner that supports deferring to patient preference
when the pt is:
- Requesting an ordered lesser potent pain medication.
Least to most potent pain medications are defined
as: acetaminophen < NSAID < tramadol < opioids
(morphine, oxycodone, hydromorphone).
- Requesting a lesser dose of the same medication IF
ORDERED.
- Requesting a less intrusive route of administration
if both routes are prescribed by the provider (PO <
IV).
10/15/24 02:16
Code Status As Directed
Resuscitation Status: Full Code
10/15/24 03:00
Flush (0.9% Sodium Chloride) [Flush (Nss)] See Dose Instructions IV PER PROTOCOL
10/15/24 03:56
Acetaminophen [Tylenol] 650 mg PO Q4HPRN PRN
Dextrose 50%-Water [Dextrose 50% Syringe] 12.5 grams IV [id number] PRN
Glucagon [GlucaGen] 1 mg IM PRN PRN
HydrOXYZINE [Atarax] 25 mg PO TIDPRN PRN anxiety
Lactated Ringers [Lr] 1,000 ml IV 150 mls/hr
Ondansetron Injectable [Zofran] 4 mg IV Q6HPRN PRN
Prochlorperazine [Compazine] 5 mg IV Q6HPRN PRN
Trimethobenzamide [Tigan] 200 mg IM Q6HPRN PRN
10/15/24 03:56
Activity As Directed
Activity Level: Ambulate
Bedside Glucose Monitoring As Directed
Frequency: AC&HS
Additional Instructions:: Change to q6h if pt on TPN, tube feeding or not eating
I/O [Intake/ Output] As Directed
Frequency: Per unit guidelines
Vital Signs As Directed
Frequency: Per unit guidelines
Weight As Directed
Frequency: Daily
Oxygen Therapy [O2 Therapy] [RESP] Routine
Titrate/Wean O2 to maintain O2 sat greater than (%): 94
DX Deep Vein Thrombosis Video Routine
10/15/24 06:00
EKG [Electrocardiogram (*1)] IN AM
Reason for Study: QTc Monitoring
10/15/24 06:39
Basic Metabolic Panel IN AM
Complete Blood Count/No Diff IN AM
Glycohemoglobin (HgbA1c) IN AM
10/15/24 07:30
Insulin Aspart Corrective Low [Novolog Flexpen-Low Resistance] See Protocol SC AC
10/15/24 08:00
ARIPiprazole [Abilify] 5 mg PO DAILY
Duloxetine Delayed Release [Cymbalta Delayed Release] 30 mg PO DAILY
Pantoprazole [Protonix IV] 40 mg IV DAILY
10/15/24 18:00
Enoxaparin Sodium [Lovenox] 40 mg SC QPM
Abnormal Lab Results
10/14/24
17:31
MCH 32.4 H pg
(27.0-31.0)
Absolute Neuts (auto) 9.5 H 10^3/uL
(1.4-6.5)
Absolute Lymphs (auto) 1.0 L 10^3/uL
(1.2-3.4)
Neutrophils % 87.8 H %
(42.2-75.2)
Lymphocytes % 8.9 L %
(20.5-51.1)
Creatinine 0.5 L mg/dL
(0.6-1.0)
Glucose 199 H mg/dl
(70-99)
10/14/24 17:31
10/14/24 17:31
Vital Signs
Initial and Last Documented VS:
Initial Vital Signs
Temp Pulse Resp BP Pulse Ox
36.4 C 81 20 153/94 97
10/14/24 17:23 10/14/24 17:23 10/14/24 17:23 10/14/24 17:23 10/14/24 17:23
Last Documented Vital Signs
Temp Pulse Resp BP Pulse Ox
36.7 C 86 16 118/76 97
10/15/24 15:45 10/15/24 15:45 10/15/24 15:45 10/15/24 15:45 10/15/24 15:45
<Pete Gallegos MD - Last Filed: 10/16/24 02:08>
MDM/Problems Addressed
Differential Diagnosis Includes:
Gastritis, gastroparesis, pancreatitis, medication side effect
MDM/Problems Addressed:
39-year-old female presents with nausea and vomiting with some mild epigastric pain that she says that these are typical symptoms that she will occasionally get related to Mounjaro. Symptoms started today after eating pizza. She is already status
postcholecystectomy. Hypertensive otherwise normal vitals. Physical exam as above. Notably has benign abdominal exam. Will plan to place an IV check labs including a CBC and a CMP, lipase. Check hCG. Check EKG and troponin given her risk
factors. Will treat with IV medications, IV fluids. Will check obstruction series but at this point with benign abdominal exam low suspicion for bowel obstruction and in my judgment no indication for emergent CT scan. Reassess after the above.
Initial labs reviewed: CBC and CMP unremarkable�notably normal LFTs. Lipase normal. hCG negative. Continue to monitor.
Patient has some additional vomiting�will trial Reglan and Benadryl.
Chronic conditions affecting care:
Diabetes
Acute Exacerbation and/or Progression of Chronic Illness:
Acutely hypertensive
Acute Exacerbation and/or Progression of Chronic Illness: HTN
<Pete Gallegos MD - Last Filed: 10/16/24 02:08>
*Pulse Oximetry
SaO2: 97
Oxygen Mode of Delivery: Room air
Patient hypoxic: no (97%)
*EKG
Interpreted by ED Provider?: Yes
Heart Rate: 62
Rate: normal
Rhythm: sinus
[place]: normal axis
Interval: normal interval and normal QT interval
QRS Pattern: normal QRS
Ischemia: no ischemia
*Critical Care Note
Total Time (30-74mins, 75-104mins- exclusive of procedures): Not Applicable
Data Reviewed
Review of Other/Old Records Reveals: Labs and Records
Source: patient and records
<Aubrey Sotomayor DO - Last Filed: 10/15/24 01:56>
Update Note
Update Note:
Patient had fallen asleep after Reglan and Benadryl given by Dr. Valdovinos. However she is awoken and has severe nausea. She is retching but not bringing up anything because 'my stomach is empty'. Patient is apprehensive to go home because she is
sure she will just start vomiting again and have to come back.
Signout from Dr. Valdovinos was that the patient would likely require hospitalization if she was not better after treatment. We will give a dose of droperidol now. Request the hospitalist admit her.
ED Attending Note
<Pete Gallegos MD - Last Filed: 10/16/24 02:08>
-
Portions of this chart may have been created with voice recognition software.� Occasional wrong word or��sound alike� substitutions may have occurred due to the inherent limitations of voice recognition software.
Discharge Plan
Departure
Patient Disposition: Admit
Date of Disposition: 10/14/24
Time of Disposition: 23:39
Presentation/result/management discussed w/ accepting MD/DO: Hospitalist
Patient with high blood pressure during this ER visit?: Yes
Condition: Good
Discharge Problem:
Intractable vomiting
Interventions
Interventions:
*Risk Screen - Suicide Last Done: 10/14/24 19:14
*General Assessment Last Done: 10/14/24 19:14
*Neglect/Abuse Screening Last Done: 10/14/24 19:14
*ED- Fall Risk Assessment Last Done: 10/14/24 19:14
*ED COVID-19 Vaccine History Last Done: 10/14/24 19:14
*Nursing Disposition Last Done: 10/15/24 03:30
[facility] Assessment Last Done: 10/14/24 19:14
Discharge Date and Time
Discharge Date/Time: 10/15/24 03:30
[2024-10-14] MEDS: NSS 1000 IV ×2 (19:31→21:43)
[2024-10-14] MEDS: ZOFRAN 4 MG IV (19:33)
[2024-10-14] MEDS: MORPHINE SULFATE 4 MG IV (19:35)
[2024-10-14 20:20] LABS: Troponin I < 0.012 ng/ml
[2024-10-14] MEDS: REGLAN 10 MG IV (20:55)
[2024-10-14] MEDS: BENADRYL 25 MG IV (20:57)
[2024-10-14 21:02] VITALS: BP 152/99
[2024-10-14 22:00] VITALS: BP 146/92
[2024-10-14 23:00] VITALS: BP 142/99
[2024-10-15] VITALS (7 sets, daily range): BP systolic 118–142; BP diastolic 74–95; BMI 26.7
--- NOTE | 2024-10-15 02:18 | HPS.HSE ---
Family Physician
-
Family Physician: Christy Huff PA-C
Chief Complaint
-
N/V
History of Present Illness
Patient is a 39y F with PMH significant for DM-II who presents to ED complaining of N/V. Patient states that she ate pizza around noon today and shortly thereafter developed N/V. She has had multiple episodes of N/V throughout the day. She
notes some abdominal discomfort and chest burning due to the repeated emesis. She took two ODT Zofran tabs at home without improvement in her symptoms. She presented to the ED here where she has had multiple treatments but continues to feel
nauseated.
Patient reports prior history of similar episodes. Notes that she has had 6 ED visits this year due to intractable emesis.
Patient notes that symptoms started following cholecystectomy in April. She is on Mounjaro (recently decreased to 5mg) but had no issues with this medication prior to dylan.
Patient also states that she started venlafaxine today - 1st dose. She is in the process of tapering off of duloxetine and beginning venlafaxine.
No other recent medication changes.
She has a medical marijuana card and reports daily use (edibles).
Medical History
Past Medical History
Past Medical History: Reports Other
Additional Past Medical History:
DM-II
Anxiety / Depression
Obesity s/p Gastrectomy
Past Surgical History: Reports Other
Additional Past Surgical History:
Sleeve Gastrectomy
Cholecystectomy
x 2
Social History
Tobacco: Smoker (Current every day smoker. 04/23 ppd. Approx 5 pack years total use.)
Alcohol: None
Drug: Marijuana (Medical card. Daily edible use. No smoking.)
Family History
Family History: Not pertinent
Allergies / Home Medications
Allergies reflects when Allergies were last updated in [facility].
Home Medications with original date entered in [facility]
Allergy/Medication List:
Allergies
Allergy/AdvReac Type Severity Reaction Status Date / Time
No Known Allergies Allergy Verified 10/14/24 17:26
Home Medications
atorvastatin 20 mg tablet 20 mg PO DAILY 04/26/24
hydroxyzine HCl 25 mg tablet 25 mg PO TIDPRN PRN anxiety 04/26/24
lisinopril 2.5 mg tablet 2.5 mg PO DAILY 04/26/24
ondansetron 4 mg disintegrating tablet 4 mg PO Q8H PRN nausea and vomiting #14 tabs 10/14/24
aripiprazole 5 mg tablet (Abilify) 5 mg PO DAILY 10/15/24
duloxetine 30 mg capsule,delayed release 30 mg PO DAILY 10/15/24
tirzepatide 5 mg/0.5 mL subcutaneous pen injector (Mounjaro) 5 mg SC QWEEK 10/15/24
venlafaxine 75 mg capsule,extended release 24 hr 75 mg PO DAILY 10/15/24
Review of Systems
-
History Source: Patient
A 12 point ROS was completed and negative except as noted: Yes
Constitutional: Reports Fatigue; Denies Fever or Chills
Respiratory: Denies Cough or Trouble Breathing
Cardiac: Reports Chest Pain; Denies Palpitations
Abdomen/GI: Reports Abdominal Pain, Nausea and Vomiting; Denies Diarrhea, Constipated, Bloody Stools or Black Stools
: Denies Dysuria or Frequency
Musculoskeletal: Denies Joint Pain or Edema
Neurological: Denies Dizzy or Headache
Psych: Denies Depression or Anxiety
Physical Exam
Vital Signs
Vital Signs
Temp Pulse Resp BP Pulse Ox
97.6 F 68 17 142/91 98
10/14/24 17:23 10/15/24 00:00 10/15/24 00:00 10/15/24 00:00 10/15/24 00:00
Physical Exam
General: Other (39y F in mild distress due to persistent nausea.)
HEENT: Other (Dry MM. Neck supple.)
Respiratory: Clear; No Wheezes, Rales or Rhonchi
Cardiac: S1/S2 and Regular Rhythm; No Murmur
GI: Soft, Non Tender, Non Distended and Normal Bowel Sounds
Musculoskeletal: No Clubbing, No Cyanosis and No Edema
Neuro: AO x 3
Laboratory Results
-
10/14/24 17:31
10/14/24 17:31
Laboratory Results
Total Bilirubin 1.0 mg/dl (0.2-1.3) 10/14/24 17:31
AST 22 U/L (14-36) 10/14/24 17:
ALT 27 U/L (0-35) 10/14/24 17:31
Alkaline Phosphatase 98 U/L (38-126) 10/14/24 17:31
Troponin I < 0.012 ng/ml 10/14/24 19:43
Lipase 158 U/L (23-300) 10/14/24 17:31
Impression/Plan
-
A/P: Patient is a 39y F with PMH significant for DM-II and obesity s/p sleeve gastrectomy who presents to ED complaining of N/V since noon today.
Intractable N/V
- Observe overnight for further evaluation and treatment.
- Multiple potential contributing factors including Mounjaro use, new medication (venlafaxine), gastritis / gastrectomy, daily THC use, etc.
- Hold Mounjaro, THC edibles, venlafaxine, etc for now.
- Supportive care with antiemetics, IVF support, etc.
- Follow for clinical improvement.
- Normal QTc on initial EKG - follow for any changes.
DM-II
- Stable. A1C in April was 5.4%.
- Would consider remaining off of Mounjaro altogether given recurrent GI symptoms.
Anxiety / Depression
- Stable. Continue duloxetine at 30mg daily dose for now.
- Hold on any further venlafaxine until acute symptoms are fully resolved (though likely unrelated given prior similar episodes).
DVT Prophylaxis: Lovenox
Code Status: Full
[2024-10-15] MEDS: INAPSINE 0.625 MG IV (02:27)
[2024-10-15] MEDS: LR 1000 IV (04:44)
--- NOTE | 2024-10-15 05:21 | PTCARENOTE ---
Patient received from ED via stretcher. Patient ambulated independently into room with a steady gait. Patient denies any nausea at this time. Patient AAOx3, drowsy r/t medications. POC reviewed with patient. Call queen within reach. Will continue to
monitor.
[2024-10-15 07:07] LABS: Hematocrit 39.2 % (37.0-47.0); Hemoglobin 14.3 g/dL (12.0-16.0); Mean Corp Hgb Conc. 36.5 g/dL (33.0-37.0); Mean Corpuscular Hgb 32.4 pg (27.0-31.0); Mean Corpuscular Volume 88.7 fL (81.0-99.0); Mean Platelet Volume 10.2 fL (7.4-10.4); Platelet Count 265 10^3/uL (130-400); Red Blood Cell Count 4.42 10^6/uL (4.20-5.40); Red Cell Dist. Width 11.9 % (11.5-14.5)
[2024-10-15 07:34] LABS: Blood Urea Nitrogen 7 mg/dl (7-17); Calcium 9.2 mg/dl (8.4-10.2); Carbon Dioxide 23 mmol/L (22-30); Chloride 108 mmol/L (98-107); Estimated Creatinine Clearance 124 ml/min; Glucose 119 mg/dl (70-99); Potassium 4.4 mmol/L (3.5-5.1); Sodium 138 mmol/L (135-145); eGFR > 60.00
[2024-10-15 08:53] LABS: Glucose - Point of Care 108 mg/dl (70-99)
[2024-10-15] MEDS: ABILIFY 5 MG PO (08:55)
[2024-10-15] MEDS: CYMBALTA DELAYED RELEASE 30 MG PO (08:55)
[2024-10-15] MEDS: NSS (PRESERVATIVE FREE) 10 ML IV (08:55)
[2024-10-15] MEDS: PROTONIX IV 40 MG IV (08:57)
[2024-10-15] MEDS: ATARAX 25 MG PO (09:08)
[2024-10-15 09:10] LABS: Glycohemoglobin (HgbA1c) 6.6 % (4.0-5.6)
--- NOTE | 2024-10-15 11:52 | W.PN.HOSP.TC ---
Today's Communication/Plan
-
Low residue diet
Discharge if tolerates
Assessment / Plan
Assessment / Plan
Gen-AAOx3, NAD
HEENT-NC, AT, anicteric, clear oral mm
Neck-supple
CV-reg, no M, +S1/S2
Lungs-clear B/L
Abd-soft, NT, ND
Ext-no edema
Musculoskeletal-no cyanosis, clubbing
Skin-warm and dry
Neuro-grossly non-focal
Psych-calm, cooperative
Intractable vomiting -difficult to ascertain exact etiology but she has multiple reasons for her symptoms. She just started taking venlafaxine on the day of admission. This can definitely cause vomiting.
In addition, she has been on Mounjaro which can certainly cause nausea and vomiting. THC edibles can cause vomiting. Prior bariatric surgery in 2010 consisting of gastric sleeve is not helping the situation, likely also contributing to episodes of
nausea and vomiting.
EGD done 07/20/2024 showed normal esophagus, erythematous mucosa in the antrum, normal duodenum. Sleeve gastrectomy found, characterized by healthy-appearing mucosa. Possible malrotation seen. Biopsies performed at that time were benign.
Recommend discontinuing further use of Mounjaro. Recommend stopping venlafaxine. Avoiding further THC use. She has had numerous ED visits for nausea and vomiting episodes.
Currently on clear liquid diet and tolerating. Advance to low residue for lunch.
DM2 without hyperglycemia - hemoglobin A1c 6.6%. Glucose 119 this morning. Currently on Mounjaro 5 mg subcu every week.
Essential hypertension -stable, continue lisinopril.
Hyperlipidemia -atorvastatin.
Anxiety/depression -getting transitioned from duloxetine to venlafaxine.
Full code
Dispo -stable for discharge if she tolerates lunch. Close outpatient follow-up with her primary care doctor and psychiatrist.
Anticipated Discharge: Today
Subjective/Interval History
-
Date of Service: October 15, 2024
Patient seen and examined. Feeling better. Denies further nausea or vomiting.
Objective Data
-
Labs:
Laboratory Results
10/15/24
06:39
WBC 10.0
Hgb 14.3
Hct 39.2
Plt Count 265
Sodium 138
Potassium 4.4
Chloride 108 H
Carbon Dioxide 23
BUN 7
Creatinine 0.6
Glucose 119 H
Calcium 9.2
Vital Signs:
Vital Signs
Temp Pulse Resp BP Pulse Ox
99.7 F 89 18 120/75 96
10/15/24 07:00 10/15/24 07:00 10/15/24 07:00 10/15/24 07:00 10/15/24 07:00
Review of Systems
-
History Source: Patient
All other systems: Reviewed and negative
--- NOTE | 2024-10-15 12:07 | W.DS.TRANS ---
DC Summary - [employer]
-
Discharge Instructions:
Discharge Diagnosis/Procedures Intractable vomiting
Diet Low Residue,Diabetic, Carb Controlled
Activity As tolerated
Driving Restrictions As prior to admission
Bathing Restrictions None
Instructions:
Stand-Alone Forms:
Changes to Home Medications: Yes
Discharge Medications:
DC Medications w/original date entered in [facility]
atorvastatin 20 mg tablet 20 mg PO DAILY 04/26/24
hydroxyzine HCl 25 mg tablet 25 mg PO TIDPRN PRN anxiety 04/26/24
lisinopril 2.5 mg tablet 2.5 mg PO DAILY 04/26/24
ondansetron 4 mg disintegrating tablet 4 mg PO Q8H PRN nausea and vomiting #14 tabs 10/14/24
aripiprazole 5 mg tablet (Abilify) 5 mg PO DAILY 10/15/24
duloxetine 30 mg capsule,delayed release 30 mg PO DAILY 10/15/24
Home Medication Changes
Stop Mounjaro
Stop venlafaxine
Pending Results: No
[2024-10-15 12:25] LABS: Glucose - Point of Care 162 mg/dl (70-99)
--- NOTE | 2024-10-15 13:37 | CM ---
Patient seen at bedside
IA Completed
OBS status - form explained & signed. In chart
Lives with mom, boyfriend, son and daughter, in a 2 story home, 2 JAIR, flight to bed/bath
PLOF: Independent, drives
Denies DME
Denies VN, has had mental health stay at [facility] in [facility] in Jan 2024 for 2 weeks
PCP: Mari Huff
Pharmacy: [address], [place]
PLAN: Home, no needs
family to transport
[2024-10-15] MEDS: LR IV (14:39)
== END 2024-10-15 15:46 | disposition home or self-care (01) ==
LOC: 3 WEST ACU 02:25
PROVIDERS: ADMITTING PHYSICIAN Hospitalist; ATTENDING PHYSICIAN Hospitalist; EMERGENCY PHYSICIAN Emergency Medicine; FAMILY PHYSICIAN Physician Assistant Medical
DX: R11.2 Nausea with vomiting, unspecified (principal); R10.13 Epigastric pain; R07.9 Chest pain, unspecified; R14.3 Flatulence; I10 Essential (primary) hypertension; F32.A Depression, unspecified; E11.65 Type 2 diabetes mellitus with hyperglycemia; F41.9 Anxiety disorder, unspecified; I49.1 Atrial premature depolarization; E78.00 Pure hypercholesterolemia, unspecified; F17.210 Nicotine dependence, cigarettes, uncomplicated; Z98.84 Bariatric surgery status; Z90.49 Acquired absence of other specified parts of digestive tract; Z83.3 Family history of diabetes mellitus; Z80.0 Family history of malignant neoplasm of digestive organs; Z82.49 Family history of ischemic heart disease and other diseases of the circulatory system; Z79.899 Other long term (current) drug therapy; Z79.85 Long-term (current) use of injectable non-insulin antidiabetic drugs
CPT/HCPCS: 74022; 80048; 80053; 82962; 83036; 83690; 84484; 84703; 85025; 85027; 93005; 96361; 96374; 96375; 99285; 99406; G0378; J1790

== ENCOUNTER 2024-10-16 11:52 | Observation (INO) | payer OTHER, SELFPAY ==
[2024-10-16 05:31] VITALS: BP 162/104
[2024-10-16 05:41] VITALS: BMI 27.6
[2024-10-16 06:12] LABS: Hematocrit 38.6 % (37.0-47.0); Hemoglobin 13.9 g/dL (12.0-16.0); Mean Corp Hgb Conc. 36.0 g/dL (33.0-37.0); Mean Corpuscular Volume 88.9 fL (81.0-99.0); Nucleated Red Blood Cells % 0 %; Platelet Count 223 10^3/uL (130-400); Red Cell Dist. Width 12.0 % (11.5-14.5)
--- NOTE | 2024-10-16 06:12 | ED.GENMED ---
History of Present Illness
General
Chief Complaint: Abdominal Symptoms
Source: patient
Exam Limitations: none
Time Seen by Provider: 10/16/24 05:54
History of Present Illness
History of Present Illness:
39-year-old female discharged yesterday afternoon for recurrent vomiting. Embudo fine upon discharge. Woke up early this morning with recurrent episodes of the same symptoms. Recurrent vomiting abdominal pain chest pain associated with vomiting.
No hematemesis no change in bowels no abdominal bloating or distention no fever. This is a similar and recurring issue for the patient. She stopped her Mounjaro also her venlafaxine. She did however use a small amount of marijuana upon returning
home from the hospital yesterday.
Past History
Past History
ED Past Medical History: HTN, Hypercholesterolemia, IDDM and Other (Recurrent vomiting)
ED Past Surgical History: Cholecystectomy (04/27/24) and Other (Gastric sleeve 2010)
Patient has exhibited threatening behavior?: No
Social History
Tobacco: Smoker (6 cig per day)
Alcohol: Former
Drug: Marijuana (edibles nightly)
Personal: Single
Living: alone
Family History
Family History: Diabetes and Other (Colon cancer, coronary artery disease)
Phy Exam
Physical Exam
Physical Exam:
GENERAL: Alert and oriented. Nontoxic but holding a emesis bag
EYE: Orbits normal.
NECK: Supple. No chest wall or neck crepitus
ENT: Pharynx without erythema
CARDIAC: Regular rate and rhythm without any obvious murmurs.
LUNGS: Clear breath sounds,normal
ABDOMEN: Soft, bowel sounds present. No distention. No rebound or guarding. Mild epigastric tenderness.
NEUROLOGICAL: Alert and oriented , grossly non-focal
SKIN: Warm and dry, no rash or lesion, no discoloration, skin intact.
MUSCULOSKELETAL: No edema,no deformity.Good color
PSYCH: Normal and appropriate interaction.
Course
Orders/Labs/Results
Orders:
Orders
10/16/24 06:02
Complete Blood Count/With Diff Urgent
Comprehensive Metabolic Panel Urgent
HCG, Serum Qualitative Screen Urgent
Comment: ADD ON
Lipase Urgent
Comment: ADD ON
10/16/24 06:05
ECG [Electrocardiogram (*1)] Urgent
Reason for Study: Chest Pain
Cardiology Consult: Unknown
EKG- Treatment ONCE
10/16/24 06:06
Add On- LAB Urgent
Tests Added?: lipase,qual bhcg
10/16/24 06:07
CT Abd/pelvis W Iv Cont Urgent
Comment: unable to tolerate oral contrast
Reason For Exam: Recurrent abdominal pain/vomiting
IV Insert/Care/Rem.- Treatment PRN
0.9% Sodium Chloride 1000 ml [Nss] 1,000 ml IV BOLUS
Iohexol [Omnipaque] See Protocol PO NOW STA
CXR2 [CR Chest - 2 Views ] Urgent
Comment:
Reason For Exam: cp/recurrent vom iting
10/16/24 06:10
Diphenhydramine [Benadryl] 25 mg IV NOW STA
Morphine Sulfate 4 mg IV NOW STA
10/16/24 06:11
Ondansetron Injectable [Zofran] 4 mg IV NOW STA
10/16/24 06:16
Pantoprazole [Protonix IV] 40 mg IV NOW STA
10/16/24 08:45
Diphenhydramine [Benadryl] 25 mg IV NOW STA
Prochlorperazine [Compazine] 5 mg IV NOW STA
10/16/24 11:37
Admit/Transfer Patient As Directed
Co-Sign Provider:
Level of Care: Observation services
Assign to:: Medical/Surgical
Physician / Group: Dr Melchor
Diagnosis: nausea and vomiting
PRN Pain Medication Management As Directed
May give lesser potent ordered pain med per pt: Yes
preference::
Protocol:: Medication orders for pain may be administered in a
manner that supports deferring to patient preference
when the pt is:
- Requesting an ordered lesser potent pain medication.
Least to most potent pain medications are defined
as: acetaminophen < NSAID < tramadol < opioids
(morphine, oxycodone, hydromorphone).
- Requesting a lesser dose of the same medication IF
ORDERED.
- Requesting a less intrusive route of administration
if both routes are prescribed by the provider (PO <
IV).
10/16/24 11:40
Code Status As Directed
Resuscitation Status: Full Code
10/16/24 11:42
Dicyclomine [Bentyl] 10 mg PO QIDPRN PRN
Morphine Sulfate 2 mg IV Q4HPRN PRN
Ondansetron Injectable [Zofran] 4 mg IV Q6HPRN PRN
10/16/24 11:45
0.9% Sodium Chloride 1000 ml [Nss] 1,000 ml IV 125 mls/hr
10/17/24 08:00
0.9% Sodium Chloride [Nss (Preservative Free)] 10 ml IV DAILY
Pantoprazole [Protonix IV] 40 mg IV DAILY
Abnormal Lab Results
10/16/24
06:02
MCH 32.0 H pg
(27.0-31.0)
Lymphocytes % 20.0 L %
(20.5-51.1)
Potassium 3.4 L mmol/L
(3.5-5.1)
BUN 5 L mg/dl
(7-17)
Creatinine 0.5 L mg/dL
(0.6-1.0)
Glucose 244 H mg/dl
(70-99)
10/16/24 06:02
10/16/24 06:02
Vital Signs
Initial and Last Documented VS:
Initial Vital Signs
Pulse Resp BP Pulse Ox
74 24 162/104 100
10/16/24 05:31 10/16/24 05:31 10/16/24 05:31 10/16/24 05:31
Last Documented Vital Signs
Pulse Resp BP Pulse Ox
70 21 164/100 100
10/16/24 07:00 10/16/24 07:00 10/16/24 07:00 10/16/24 07:00
MDM/Problems Addressed
Differential Diagnosis Includes:
Patient describing recurrent episodes of similar episodes. Potential etiologies would include medications marijuana possibly gastric sleeve related. Reviewing her previous studies he had a CT done April of this year but with IV contrast feel
completeness getting some oral contrast then and repeating the study to evaluate the gastric sleeve would be beneficial. Currently fluids pain and nausea management repeat labs.
*Radiology
Radiology exam reviewed: radiology read reviewed (Negative)
*Pulse Oximetry
SaO2: 100
Oxygen Mode of Delivery: Room air
Patient hypoxic: no
*EKG
Interpreted by ED Provider?: Yes
Interpretation: normal
Comparison EKG: no changes
Heart Rate: 67
Rate: normal
Rhythm: sinus
Dudley: normal axis
Interval: normal interval
QRS Pattern: normal QRS
Ischemia: no ischemia
*Critical Care Note
Total Time (30-74mins, 75-104mins- exclusive of procedures): Not Applicable
Data Reviewed
Review of Other/Old Records Reveals: Labs, Records, Testing and Discharge Summary
Update Note
Update Note:
Patient remains with intractable nausea. Warrants readmission
ED Attending Note
-
Portions of this chart may have been created with voice recognition software.� Occasional wrong word or��sound alike� substitutions may have occurred due to the inherent limitations of voice recognition software.
Discharge Plan
Departure
Patient Disposition: Admit
Date of Disposition: 10/16/24
Time of Disposition: :
Presentation/result/management discussed w/ accepting MD/DO: Hospitalist
Discharge Problem:
Intractable nausea and vomiting
Interventions
Interventions:
*Risk Screen - Suicide Last Done: 10/16/24 05:31
*General Assessment Last Done: 10/16/24 05:41
*Neglect/Abuse Screening Last Done: 10/16/24 05:31
*ED- Fall Risk Assessment Last Done: 10/16/24 05:41
*ED COVID-19 Vaccine History Last Done: 10/16/24 05:41
EQ-Lnuxqy-Jrfcjpugpl Assessment Last Done: 10/16/24 06:43
[2024-10-16 06:20] LABS: HCG, Serum Qualitative Screen Negative
[2024-10-16] MEDS: BENADRYL 25 MG IV ×2 (06:28→09:01)
[2024-10-16] MEDS: MORPHINE SULFATE 4 MG IV (06:28)
[2024-10-16] MEDS: NSS 1000 IV ×3 (06:28→20:56)
[2024-10-16 06:29] LABS: ALT (SGPT) 20 U/L (0-35); AST (SGOT) 17 U/L (14-36); Albumin 4.0 g/dl (3.5-5.0); Alkaline Phosphatase 78 U/L (38-126); Blood Urea Nitrogen 5 mg/dl (7-17); Calcium 9.3 mg/dl (8.4-10.2); Carbon Dioxide 26 mmol/L (22-30); Chloride 106 mmol/L (98-107); Estimated Creatinine Clearance 124 ml/min; Glucose 244 mg/dl (70-99); Lipase 167 U/L (23-300); Potassium 3.4 mmol/L (3.5-5.1); Sodium 138 mmol/L (135-145); Total Protein 6.3 g/dl (6.3-8.2); eGFR > 60.00
[2024-10-16] MEDS: ZOFRAN 4 MG IV ×2 (06:29→14:01)
[2024-10-16] MEDS: OMNIPAQUE 50 ML PO (06:32)
[2024-10-16] MEDS: PROTONIX IV 40 MG IV (06:32)
[2024-10-16 06:43] VITALS: BP 157/98
[2024-10-16 07:00] VITALS: BP 164/100
[2024-10-16] MEDS: COMPAZINE 5 MG IV ×2 (09:01→23:27)
--- NOTE | 2024-10-16 11:43 | HPS.HSE ---
Family Physician
-
Family Physician: Christy Huff PA-C
Chief Complaint
-
Recurrent nausea and vomiting
History of Present Illness
Patient 39 years old female with past medical history of diabetes mellitus, depression anxiety, hypertension, diabetes mellitus, obesity status post sleeve gastrectomy in the past, cholecystectomy back in April of this year, came into the hospital
with recurrent nausea and vomiting. Patient was just seen in the hospital and discharged for similar symptoms yesterday. She went home and she started having recurrent nausea and vomiting and not feeling well with abdominal discomfort and came
back to the hospital. She denies any fevers or chills. She denies any shortness of breath. She has some chest discomfort associated with her GI symptoms, not related to exertion. She has not had any bowel movement since last Thursday. Prior to
that denied melena, hematochezia, or hematemesis. Of note she has been on Mounjaro and also using cannabinoid that she did not use prior to readmission. Her venlafaxine was discontinued also yesterday feeling that this was part of her presentation
as well. She just had an upper endoscopy in July of this year which was pretty much unremarkable. In the ER, she was given multiple medications and she was referred to hospitalist service for further evaluation.
Medical History
Past Medical History
Past Medical History: Reports Other
Additional Past Medical History:
DM-II
Anxiety / Depression
Obesity s/p Gastrectomy
Past Surgical History: Reports Other
Additional Past Surgical History:
Sleeve Gastrectomy
Cholecystectomy
x 2
Social History
Tobacco: Smoker (Current every day smoker. 04/23 ppd. Approx 5 pack years total use.)
Alcohol: None
Drug: Marijuana (Medical card. Daily edible use. No smoking.)
Family History
Family History: Not pertinent
Allergies / Home Medications
Allergies reflects when Allergies were last updated in [employer].
Home Medications with original date entered in [employer]
Allergy/Medication List:
Allergies
Allergy/AdvReac Type Severity Reaction Status Date / Time
No Known Allergies Allergy Verified 10/16/24 05:33
Home Medications
atorvastatin 20 mg tablet 20 mg PO DAILY High Cholesterol 04/26/24
hydroxyzine HCl 25 mg tablet 25 mg PO DAILY 04/26/24
lisinopril 2.5 mg tablet 2.5 mg PO DAILY Blood Pressure 04/26/24
aripiprazole 5 mg tablet (Abilify) 5 mg PO DAILY Mental Health/Anxiety 10/15/24
hydroxyzine HCl 25 mg tablet 25 mg PO BIDPRN PRN anixety 10/16/24
tirzepatide 5 mg/0.5 mL subcutaneous pen injector (Mounjaro) 5 mg SC TU 10/16/24
venlafaxine 75 mg capsule,extended release 24 hr (Effexor XR) 75 mg PO DAILY 10/16/24
zolpidem 5 mg tablet (Ambien) 5 mg PO HSPRN PRN sleep 10/16/24
Review of Systems
-
A 12 point ROS was completed and negative except as noted: Yes
Physical Exam
Vital Signs
Vital Signs
Pulse Resp BP Pulse Ox
70 21 164/100 100
10/16/24 07:00 10/16/24 07:00 10/16/24 07:00 10/16/24 07:00
Physical exam:
General: Acutely ill
HEENT: Normocephalic, Atraumatic and Dry Mucous Membranes
Respiratory: Clear to Auscultation; Negative Wheezes, Rales or Rhonchi
Cardiac: Regular Rhythm and S1/S2
GI: Soft, tender and Nondistended
Musculoskeletal: No Clubbing, No Cyanosis and No Edema
Neuro: Awake, Alert and Oriented, no gross neurological deficits
Psych: Calm
Physical Exam
General: Other
Laboratory Results
-
10/16/24 06:02
10/16/24 06:02
Laboratory Results
Total Bilirubin 0.9 mg/dl (0.2-1.3) 10/16/24 06:02
AST 17 U/L (14-36) 10/16/24 06:02
ALT 20 U/L (0-35) 10/16/24 06:02
Alkaline Phosphatase 78 U/L (38-126) 10/16/24 06:02
Lipase 167 U/L (23-300) 10/16/24 06:02
Data Reviewed
-
Lab Data: Labs Reviewed by me
Impression/Plan
-
IMPRESSION:
Patient 39 years old female with diabetes mellitus, depression anxiety, came into the hospital with recurrent abdominal discomfort nausea and vomiting. She will need to be observed in the hospital and monitor accordingly.
PLAN:
Recurrent abdominal discomfort with nausea and vomiting:
Likely related to Mounjaro causing gastric and intestinal motility issues and it typically has a long half-life (we are talking about 2 to 4 weeks) and could have been exacerbated by cannabinoid
IV fluid
IV PPI
Antiemetics as needed
Pain control
Avoid Mounjaro for now
Check urine toxicology
Hypokalemia:
Replete and trend
Diabetes mellitus type 2 with hyperglycemia:
Insulin sliding scale
Last hemoglobin A1c 6.6
Monitor blood sugar and adjust medications accordingly
Hypertension:
Uncontrolled due to GI distress most likely
Resume OMAIRA inhibitor, lisinopril 2.5 mg p.o. daily
Monitor blood pressure and adjust medications according
Hyperlipidemia:
Continue home statins atorvastatin 20 mg p.o. daily
Depression and anxiety:
Continue hydroxyzine as needed
Continue duloxetine 30 minutes p.o. daily
She was discontinued venlafaxine although I do not think that really main contributor so potentially could be restarted but will reevaluate
DVT prophylaxis:
Lovenox SQ
CODE STATUS:
Full code
Time spent 75 minutes
--- NOTE | 2024-10-16 12:52 | CM ---
Met with patient at bedside in ED; initial assessment completed
Pharmacy verified: [facility] @ [address] [place] [address]
Lives with family (mother, brother, her 2 children); children's father also lives in the house. 2 steps to enter, 12-13 steps between floors; railing on stairs; powder room 1st floor; her bath has a stall shower w/grab bar
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
Denied SNF or Home Health history
Drove self to hospital; if she is not able, a family member will transport her home
Plan: discharge to home; no needs anticipated
[2024-10-16 13:15] VITALS: BP 157/95
[2024-10-16 13:17] VITALS: BMI 27.1
[2024-10-16] MEDS: KCL 40 MEQ PO (13:47)
[2024-10-16] MEDS: MORPHINE SULFATE 2 MG IV ×2 (14:29→23:28)
[2024-10-16] MEDS: ABILIFY 5 MG PO (14:36)
[2024-10-16] MEDS: ATARAX 25 MG PO (14:36)
[2024-10-16] MEDS: ZESTRIL 2.5 MG PO (14:36)
[2024-10-16] MEDS: LIPITOR 20 MG PO (14:36)
--- NOTE | 2024-10-16 15:07 | PTCARENOTE ---
Received pt from ER via stretcher, accompanied by ER staff. Pt AAO x3, WRAY well, ambulatory to bed, no c/o dizziness/weakness. VSS. On room air- pulse ox 99%, no SOB noted. Abd large, soft, pt NPO with sips clears. Pt c/o nausea and upper/mid
abd pain. Pt DTV; will void in BR. IVF's NSS @ 125 ml/hr infusing via Lt forearm site without sx of infiltration. Oriented to 4 East, currently resting in bed. Will continue to monitor.
[2024-10-16 15:47] VITALS: BP 146/87
[2024-10-16 17:57] LABS: Glucose - Point of Care 109 mg/dl (70-99)
[2024-10-16] MEDS: LOVENOX 40 MG SC (18:03)
[2024-10-16] MEDS: REGLAN 10 MG IV (18:03)
[2024-10-16 23:14] VITALS: BP 124/78
[2024-10-16 23:52] LABS: Glucose - Point of Care 117 mg/dl (70-99)
[2024-10-17] MEDS: REMOVE NICOTINE PATCH 1 PATCH REMOVE (00:04)
[2024-10-17] MEDS: NSS 1000 IV (03:45)
[2024-10-17 05:57] LABS: Glucose - Point of Care 113 mg/dl (70-99)
[2024-10-17 07:35] VITALS: BP 165/98
[2024-10-17 07:38] LABS: Hematocrit 37.2 % (37.0-47.0); Hemoglobin 13.0 g/dL (12.0-16.0); Mean Corp Hgb Conc. 34.9 g/dL (33.0-37.0); Mean Corpuscular Volume 91.0 fL (81.0-99.0); Nucleated Red Blood Cells % 0 %; Platelet Count 199 10^3/uL (130-400); Red Cell Dist. Width 11.9 % (11.5-14.5)
[2024-10-17] MEDS: ATARAX 25 MG PO ×2 (08:16→23:10)
[2024-10-17] MEDS: ZESTRIL 2.5 MG PO (08:16)
[2024-10-17] MEDS: LIPITOR 20 MG PO (08:16)
[2024-10-17] MEDS: ABILIFY 5 MG PO (08:17)
[2024-10-17] MEDS: NSS (PRESERVATIVE FREE) 10 ML IV (08:17)
[2024-10-17] MEDS: PROTONIX IV 40 MG IV (08:18)
[2024-10-17] MEDS: MORPHINE SULFATE 2 MG IV (08:18)
[2024-10-17] MEDS: COMPAZINE 5 MG IV ×2 (08:19→23:03)
[2024-10-17 09:22] LABS: Blood Urea Nitrogen 2 mg/dl (7-17); Calcium 8.9 mg/dl (8.4-10.2); Carbon Dioxide 26 mmol/L (22-30); Chloride 108 mmol/L (98-107); Estimated Creatinine Clearance 124 ml/min; Glucose 131 mg/dl (70-99); Magnesium 1.8 mg/dl (1.6-2.3); Potassium 3.5 mmol/L (3.5-5.1); Sodium 138 mmol/L (135-145); eGFR > 60.00
--- NOTE | 2024-10-17 10:32 | W.PN.HOSP.TC ---
Today's Communication/Plan
-
Start clear liquid diet
Assessment / Plan
Assessment / Plan
Physical exam:
General: Well Developed, Well Nourished and No Apparent Distress
HEENT: Normocephalic, Atraumatic and Moist Mucous Membranes
Respiratory: Clear to Auscultation; Negative Wheezes, Rales or Rhonchi
Cardiac: Regular Rhythm and S1/S2
GI: Soft, Nontender and Nondistended
Musculoskeletal: No Clubbing, No Cyanosis and No Edema
Neuro: Awake, Alert and Oriented
Psych: Calm
A/P:
Recurrent abdominal discomfort with nausea and vomiting:
Likely related to Mounjaro causing gastric and intestinal motility issues and it typically has a long half-life (we are talking about 2 to 4 weeks) and could have been exacerbated by cannabinoid
Stop fluid
IV PPI and add oral H2 alessandro in the morning
Start clear liquid diet today and advance as tolerated
Antiemetics as needed
Pain control
Avoid Mounjaro for now
Checked urine toxicology--> positive for cannabinoid and opiates as expected but nothing different.
Hypokalemia:
Improved
Diabetes mellitus type 2 with hyperglycemia:
Insulin sliding scale
Last hemoglobin A1c 6.6
Monitor blood sugar and adjust medications accordingly
Hypertension:
Continue usual meds
Hyperlipidemia:
Continue home statins atorvastatin 20 mg p.o. daily
Depression and anxiety:
Continue hydroxyzine as needed
Continue duloxetine 30 minutes p.o. daily
She was discontinued venlafaxine although I do not think that really main contributor so potentially could be restarted but will reevaluate
DVT prophylaxis:
Lovenox SQ
CODE STATUS:
Full code
Anticipated Discharge: Within 24 hours
Subjective/Interval History
-
Date of Service: October 17, 2024
Patient had recurrent of nausea earlier this morning but after the bath feels improved. No chest pain or shortness of breath. Afebrile
Objective Data
-
Labs:
Laboratory Results
10/17/24
07:11
WBC 6.7
Hgb 13.0
Hct 37.2
Plt Count 199
Sodium 138
Potassium 3.5
Chloride 108 H
Carbon Dioxide 26
BUN 2 L
Creatinine 0.6
Glucose 131 H
Calcium 8.9
Vital Signs:
Vital Signs
Temp Pulse Resp BP Pulse Ox
98.8 F 66 16 168/104 96
10/17/24 07:35 10/17/24 08:16 10/17/24 07:35 10/17/24 08:16 10/17/24 07:35
I&O
10/16/24 10/17/24 10/18/24
06:59 06:59 06:59
Intake Total 2175 / 2175
Balance 2175 / 2175
[2024-10-17 11:55] LABS: Glucose - Point of Care 145 mg/dl (70-99)
[2024-10-17] MEDS: NOVOLOG FLEXPEN-MODERATE RESISTANCE SC (12:20)
--- NOTE | 2024-10-17 14:22 | CM ---
Chart reviewed
clear liquid diet
PLAN: Home, no needs
[2024-10-17 15:30] VITALS: BP 153/91
[2024-10-17 16:47] LABS: Glucose - Point of Care 153 mg/dl (70-99)
[2024-10-17] MEDS: NOVOLOG FLEXPEN-MODERATE RESISTANCE 1 UNITS SC (17:48)
[2024-10-17] MEDS: LOVENOX SC (17:48)
[2024-10-17] MEDS: REMOVE NICOTINE PATCH REMOVE (20:52)
[2024-10-17 21:50] LABS: Glucose - Point of Care 136 mg/dl (70-99)
[2024-10-17] MEDS: AMBIEN 5 MG PO (23:10)
[2024-10-17 23:46] VITALS: BP 134/89
[2024-10-18] MEDS: PROTONIX IV 40 MG IV (06:16)
[2024-10-18] MEDS: NSS (PRESERVATIVE FREE) 10 ML IV (06:17)
[2024-10-18 07:45] VITALS: BP 121/79
[2024-10-18 07:57] LABS: Glucose - Point of Care 118 mg/dl (70-99)
[2024-10-18] MEDS: NOVOLOG FLEXPEN-MODERATE RESISTANCE SC (08:03)
[2024-10-18] MEDS: ZESTRIL 2.5 MG PO (08:11)
[2024-10-18] MEDS: LIPITOR 20 MG PO (08:12)
[2024-10-18] MEDS: ABILIFY 5 MG PO (08:12)
[2024-10-18] MEDS: ATARAX 25 MG PO (08:12)
[2024-10-18] MEDS: PEPCID 20 MG PO (08:12)
[2024-10-18 08:28] LABS: Blood Urea Nitrogen 4 mg/dl (7-17); Calcium 9.0 mg/dl (8.4-10.2); Carbon Dioxide 28 mmol/L (22-30); Chloride 106 mmol/L (98-107); Estimated Creatinine Clearance 124 ml/min; Glucose 127 mg/dl (70-99); Potassium 3.9 mmol/L (3.5-5.1); Sodium 139 mmol/L (135-145); eGFR > 60.00
--- NOTE | 2024-10-18 08:42 | W.PN.HOSP.TC ---
Today's Communication/Plan
-
Discharge planning today
Assessment / Plan
Assessment / Plan
Physical exam:
General: Well Developed, Well Nourished and No Apparent Distress
HEENT: Normocephalic, Atraumatic and Moist Mucous Membranes
Respiratory: Clear to Auscultation; Negative Wheezes, Rales or Rhonchi
Cardiac: Regular Rhythm and S1/S2
GI: Soft, Nontender and Nondistended
Musculoskeletal: No Clubbing, No Cyanosis and No Edema
Neuro: Awake, Alert and Oriented
Psych: Calm
A/P:
Recurrent abdominal discomfort with nausea and vomiting:
Improved
Likely related to Mounjaro causing gastric and intestinal motility issues and it typically has a long half-life (we are talking about 2 to 4 weeks) and could have been exacerbated by cannabinoid
Stop fluid
IV PPI and add oral H2 alessandro in the morning
Tolerating low residue diet today
Antiemetics as needed
Pain control
Avoid Mounjaro for now
Checked urine toxicology--> positive for cannabinoid and opiates as expected but nothing different.
Hypokalemia:
Improved
Diabetes mellitus type 2 with hyperglycemia:
Insulin sliding scale
Last hemoglobin A1c 6.6
Monitor blood sugar and adjust medications accordingly
Hypertension:
Continue usual meds
Hyperlipidemia:
Continue home statins atorvastatin 20 mg p.o. daily
Depression and anxiety:
Continue hydroxyzine as needed
Continue duloxetine 30 minutes p.o. daily
She was discontinued venlafaxine although I do not think that really main contributor so potentially could be restarted as outpatient
DVT prophylaxis:
Lovenox SQ
CODE STATUS:
Full code
Anticipated Discharge: Today
Subjective/Interval History
-
Date of Service: October 18, 2024
Patient feels better today. Able to tolerate solid food.
Objective Data
-
Labs:
Laboratory Results
10/18/24
07:00
Sodium 139
Potassium 3.9
Chloride 106
Carbon Dioxide 28
BUN 4 L
Creatinine 0.5 L
Glucose 127 H
Calcium 9.0
Vital Signs:
Vital Signs
Temp Pulse Resp BP Pulse Ox
98.0 F 62 16 121/79 100
10/18/24 07:45 10/18/24 08:11 10/18/24 07:45 10/18/24 08:11 10/18/24 07:45
I&O
10/17/24 10/18/24 10/19/24
06:59 06:59 06:59
Intake Total 2175 / 2175 500 / 500
Balance 2175 / 2175 500 / 500
--- NOTE | 2024-10-18 11:00 | W.DCSUMMARY ---
Discharge Summary
Discharge Data
Date of Admission: 10/16/24
Date of Discharge: 10/18/24
-
Pending Results: No
Hospital Course
Patient 39 years old female with history of depression, diabetes mellitus, obesity and weight loss medications, presented to the hospital recurrent nausea vomiting abdominal pain. Patient had a recent hospitalization for similar complaints and she
improved sent home and came back in less than a day with same symptoms. After careful review of her presentation the etiology was most likely related to gastric and intestinal motility issues due to Mounjaro. We had lengthy discussions about this
and recommended to stay away from this medication and discuss with her primary care provider as outpatient any other alternatives. She did improve throughout this hospital stay and she got intravenous fluids, antiemetics, PPI, and supportive care
overall. She was able to tolerate advancing diet without any problems. She will be discharged in stable condition today.
Discharge Plan
-
Patient Disposition: Home (Routine Discharge)
Discharge Diagnosis/Procedures: Nausea and abdominal pain and vomiting related to Mounjaro.
Diet: Regular
Activity: As tolerated
Blood Work: Please PCP to order CBC, BMP within 1 week
Referrals:
Christy Huff PA-C [Family Provider, Family Practice] - in less than 1 week
Prescriptions:
New
famotidine [Pepcid] 20 mg tablet
20 mg PO DAILY Qty: 7 0RF
Continued
atorvastatin 20 mg Tablet
20 mg PO DAILY
hydroxyzine HCl 25 mg Tablet
25 mg PO DAILY
lisinopril 2.5 mg Tablet
2.5 mg PO DAILY
aripiprazole [Abilify] 5 mg Tablet
5 mg PO DAILY
venlafaxine [Effexor XR] 75 mg Capsule,Extended Release 24hr
75 mg PO DAILY
hydroxyzine HCl 25 mg tablet
25 mg PO BIDPRN PRN (Reason: anixety)
zolpidem [Ambien] 5 mg Tablet
5 mg PO HSPRN PRN (Reason: sleep)
Discontinued
Mounjaro 5 mg/0.5 mL Pen Injector
5 mg SC TU
Discharge Orders:
Discharge Patient (As Directed); Ordered 10/18/24
Ordered By: Michael Melchor
Discharge Date and Time
Discharge Date/Time: 10/18/24 11:42
Print Language: HUNGARIAN
[2024-10-18 11:29] VITALS: BP 127/89
== END 2024-10-18 11:42 | disposition home or self-care (01) ==
LOC: 4 EAST ACU 11:52
PROVIDERS: ADMITTING PHYSICIAN Hospitalist; EMERGENCY PHYSICIAN Emergency Medicine; FAMILY PHYSICIAN Physician Assistant Medical
DX: R10.9 Unspecified abdominal pain (principal); E11.65 Type 2 diabetes mellitus with hyperglycemia; F17.210 Nicotine dependence, cigarettes, uncomplicated; F12.90 Cannabis use, unspecified, uncomplicated; E87.6 Hypokalemia; I10 Essential (primary) hypertension; E78.5 Hyperlipidemia, unspecified; F41.8 Other specified anxiety disorders
CPT/HCPCS: 71046; 74177; 80048; 80053; 80306; 80307; 82962; 83690; 83735; 84703; 85025; 93005; 96361; 96374; 96375; 96376; 99285; 99406; Q9967